=== PATIENT | male | born 1940 | race Caucasian/White ===

== ENCOUNTER 2021-10-27 10:41 | Observation (INO) ==
--- NOTE | 2021-10-16 08:32 | PAT Medication Instructions ---
Medication Instructions Date of Service October 16, 2021 Home Medications Medication Instructions Recorded carvedilol 12.5 mg tablet 12.5 mg PO .COMPLEX #225 tab 06/12/21 amlodipine 5 mg tablet 5 mg PO BID cholecalciferol (vitamin D3) 25 mcg (1,000 unit) capsule 1,000 units PO QAM fluticasone propionate 50 mcg/actuation nasal spray,suspension (Allergy Relief (fluticasone)) 1 spray INTRANASAL PRN lisinopril 10 mg tablet 10 mg PO BID coQ10 (ubiquinol) 100 mg capsule 100 mg PO TID carvedilol 12.5 mg tablet 12.5 mg PO .COMPLEX dutasteride 0.5 mg capsule 0.5 mg PO QAM multivitamin 1 tab PO QAM Continue as directed carvedilol 12.5 mg tablet 12.5 mg PO .COMPLEX (including morning of surgery if you usually take a morning dose) STOP taking 2 weeks before surgery coQ10 (ubiquinol) 100 mg capsule 100 mg PO TID DO NOT take the morning of surgery cholecalciferol (vitamin D3) 25 mcg (1,000 unit) capsule 1,000 units PO QAM lisinopril 10 mg tablet 10 mg PO BID multivitamin 1 tab PO QAM Take morning of surgery With a small sip of water, OTHERWISE NOTHING TO EAT OR DRINK AFTER MIDNIGHT: amlodipine 5 mg tablet 5 mg PO BID fluticasone propionate 50 mcg/actuation nasal spray,suspension (Allergy Relief (fluticasone)) 1 spray INTRANASAL PRN(if needed) dutasteride 0.5 mg capsule 0.5 mg PO QAM Take evening before surgery amlodipine 5 mg tablet 5 mg PO BID fluticasone propionate 50 mcg/actuation nasal spray,suspension (Allergy Relief (fluticasone)) 1 spray INTRANASAL PRN(if needed) lisinopril 10 mg tablet 10 mg PO BID Other Notes If you have any questions please call us at [phone] or [phone] or [phone] or [phone]
--- NOTE | 2021-10-16 12:06 | Anesthesiology Consultation ---
Date of Service October 16, 2021 Assessment & Plan (1) Encounter for pre-operative examination: - Case discussed with Dr. Ash including abnormal EKG and previous cardiac testing. He advised patient is acceptable risk to proceed with surgery and does not need additional evaluation or testing from his standpoint. - cardiology office visit 04/21/2021 [place]: "...Cardiomyopathy...his degree of LV dysfunction has waxed and waned over the years. overall he seems to be feeling well...not sure there is a lot of value and repeat echocardiography given his good functional status. Think continuing him on the current dose of beta blockade and Chris inhibitor is reasonable...does report some symptoms of dizziness in the morning and it is unclear if he would tolerate higher doses. We can watch his blood pressures over time and see if there is room for more aggressive therapy...PVCs (premature ventricular contractions)...frequency of his PVCs appears to wax and wane. However, this has been a very longstanding problem for this patient. He reports 1st being diagnosed with PVCs several decades ago. He seems to have fairly frequent PVCs currently. However, no symptoms. I think we will continue our current therapy..." - anesthesia history: PONV, post-op urinary retention. - COVID screening: Per assessment on 10/16/2021: Travel screen negative, no known COVID-19 positive contacts or current COVID-19 related symptoms in past 2 weeks. Surgeon arranging preop COVID testing, scheduled 10/23/2021. Awaiting results. Chart Review Chart Review: Acceptable Risk for Surgery and Patient seen in Pre Admission Testing Teaching & Discussion Pre-Anesthesia Teaching/Discussion Notes: Instructed NPO after midnight before surgery, except medications with 15 cc of water. Medication instructions provided according to the PAT guidelines. History Surgery Operation Date: 10/27/21 10:50 Proposed Procedures p Left Scrotal Hydrocelectomy - Hollis Fernandez MD Height/Weight Height: 5 ft 9 in Weight: 83.2 kg Allergies Allergy/AdvReac Type Severity Reaction Status Date / Time adhesive tape Allergy Unknown RASH Verified 10/15/21 12:38 amoxicillin Allergy Unknown DIZZINESS, Verified 10/15/21 12:38 NAUSEA levofloxacin Allergy Unknown DIZZINESS, Verified 10/15/21 12:38 NAUSEA naproxen [From Aleve] Allergy Unknown VISION Verified 10/15/21 12:38 ISSUES amiodarone AdvReac Unknown Ocular Verified 10/15/21 12:38 toxicity Medications Home Medications Medication Instructions Recorded Confirmed Last Taken amlodipine 5 mg tablet 5 mg PO BID tab 04/03/19 10/15/21 04/28/20 cholecalciferol (vitamin D3) 25 1,000 units PO QAM cap 12/11/19 10/15/21 04/28/20 mcg (1,000 unit) capsule fluticasone propionate 50 1 spray INTRANASAL PRN g 03/04/20 10/15/21 04/27/20 mcg/actuation nasal spray,suspension (Allergy Relief (fluticasone)) lisinopril 10 mg tablet 10 mg PO BID 04/28/20 10/15/21 04/28/20 coQ10 (ubiquinol) 100 mg capsule 100 mg PO TID 04/21/21 10/15/21 Unknown carvedilol 12.5 mg tablet 12.5 mg PO .COMPLEX #225 tab 06/12/21 10/15/21 Unknown dutasteride 0.5 mg capsule 0.5 mg PO QAM 10/15/21 10/15/21 Unknown multivitamin 1 tab PO QAM 10/15/21 10/15/21 Unknown Additional Notes: Pt states is taking a different form of CoQ10 and was advised to follow same instructions-stopping that supplement 2 weeks before surgery or as soon as possible given surgery within 11 days. He verbalized understanding, denied questions or concerns. Past Medical History Medical History (Updated 10/19/21 @ 08:46 by Guerita Saba PA-C) BPH w urinary obs/LUTS Cardiomyopathy unspecified per cardio records, per 2019 echo: EF 45-50%, Moderately dilated LV with mildly reduced systolic function Hypokinesis of base to mid inferoseptum and inferolateral wall Severe hypokinesis to akinesis of the base to mid inferior wall Dyspnea on effort PT DENIES Hypertension controlled, stable per pt Pulmonary embolism HX -NO ISSUES SINCE PVCs (premature ventricular contractions) F/U DR WEN NGUYỄN Rotator cuff tear arthropathy of right shoulder Tear meniscus knee with Levaquin Patient denies h/o stroke, seizures, heart attack, DM, or blood transfusions. Exercise / Class Metabolic Activity II 4-5 Yardwork/Stairs/Walk up hill (denies CP or SOB with 1 FOS) Past Family History Family History Other No known health problems Past Surgical History Surgical History History of back surgery X 5-INCLUDING FUSION History of cardiac cath [facility] NO STENTS-FEW YRS AGO History of colonoscopy History of esophagogastroduodenoscopy (EGD) History of herniorrhaphy X 3 Hx of shoulder surgery LEFT Nausea and vomiting after administration of anesthetic agent Past Anesthesia History No Family Hx of Anesthesia Complications and Other (h/o post-op urinary retention) History of PONV No Hx of Motion Sickness and History of PONV Social History Smoking Status: Never smoker Do You Dip or Chew Tobacco: No Hx Alcohol Use: Yes Alcohol type: beer alcohol intake frequency: holidays/special occasions only Hx Substance Use: No Review of Systems Chronic palpitations with PVCs, denies associated dizziness or lightheadedness. H/o snoring, denies witnessed apneas. Infrequent reflux, resolves with TUMS. Patient denies chest pain, shortness of breath, dyspnea on exertion, fever, chills, cough, or wheezing. Physical Exam Vital Signs Vitals BP 146/72 P 51 TEMP 98.2 SP02 99% on RA RESP 17 Physical Full cervical extension range of motion without pain TMD 3.5 finger breaths Mallampati Score 2 Dentition: intact, missing right lower front, bridge right lower back, multiple caps/crowns-none in front per pt; denies chipped or loose teeth, Lungs: normal respiratory effort. Clear throughout to auscultation, no adventitious breath sounds Cardiac: regular rate and rhythm, no murmurs noted Carotid arteries: negative bruit bilat Lab Results Anesthesia Preop Results Results Anesthesia Widget: WBC 7.64 K/uL (4.8-10.8) 10/16/21 Hgb 12.5 g/dL (14.0-18.0) L 10/16/21 Hct 38.5 % (42-52) L 10/16/21 Plt 219 K/uL (130-400) 10/16/21 Na 140 mmol/L (136-145) 10/16/21 K 4.4 mmol/L (3.5-5.1) 10/16/21 Cl 110 mmol/L (98-107) H 10/16/21 CO2 26 mmol/L (21-32) 10/16/21 BUN 23 mg/dl (6-23) 10/16/21 Creat 1.07 mg/dl (0.6-1.4) 10/16/21 Glucose Level 75 mg/dl (70-99(Fasting)) 10/16/21 Urine Color Dark Yellow 10/16/21 Urine Appearance Clear (Clear) 10/16/21 Urine pH 5.0 (4.5-7.5) 10/16/21 Urine Specific [place] 1.021 (1.000-1.030) 10/16/21 Urine Protein Trace (Negative) H 10/16/21 Urine Glucose (UA) Negative (Negative) 10/16/21 Urine Ketones Trace (Negative) H 10/16/21 Urine Blood Negative (Negative) 10/16/21 Urine Nitrite Negative (Negative) 10/16/21 Urine Bilirubin Negative (Negative) 10/16/21 Urine Urobilinogen Negative (Negative) 10/16/21 Urine Leukocyte Esterase Negative (Negative) 10/16/21 Urine WBC (Auto) 1-5 /hpf (0-5) 10/16/21 Urine RBC (Auto) 0-4 /hpf (0-4) 10/16/21 Urine Hyaline Casts (Auto) 1-5 /lpf (0-5) 10/16/21 Urine Epithelial Cells (Auto) 5-10 /lpf (0-5) H 10/16/21 Urine Bacteria (Auto) Negative (Negative) 10/16/21 Testing Electrocardiogram Date: 10/16/21 Sinus bradycardia with 1st degree AV block, rate 47 bpm Septal infarct, age undetermined When compared with ECG of 04/28/2020, septal infarct is now present Chest X-Ray Date: 10/16/21 The cardiac silhouette is mildly enlarged. Mild linear subsegmental atelectasis/scarring of the lung bases. There is no pneumothorax, pleural effusion, airspace consolidation or overt pulmonary edema. The lungs are mildly hyperinflated. Degenerative changes of the shoulders and spine. IMPRESSION: No acute process. Echocardiogram Date: 01/25/20 EF 45-50% Moderately dilated LV with mildly reduced systolic function Hypokinesis of base to mid inferoseptum and inferolateral wall Severe hypokinesis to akinesis of the base to mid inferior wall No LVH Mild mitral regurgitation Grade I diastolic dysfunction Stress Test Date: 12/05/19 Exercise METS 4 MPHR 97% Nondiagnostic for exercise induced ischemia Multiple PVCs and in recovery ventricular bigeminy
[~2021-10-27 10:41] MED LIST: LIDOCAINE 2% 2 ML VIAL/AMP(20MG/ML) INFIL ONE; LR 15ML/HR IV SCH; ONDANSETRON INJ 2 MG/ML 2 ML VIAL ONE; PROPOFOL IV EMULSION 10 MG/ML 20 ML VIAL IV ONE; ceFAZolin 2000MG 2,000 MG/15 ML SYR IV SCH; fentaNYL citrate 100 MCG/2 ML VIAL ONE
[2021-10-27] MEDS ORDERED: ONDANSETRON INJ 2 MG/ML 2 ML VIAL IV PRN (11:31)
[2021-10-27] MEDS ORDERED: PROMETHAZINE HCL 6.25 MG in SODIUM CHLORIDE 0.9% 50 ML IV PRN (11:31)
[2021-10-27] MEDS ORDERED: ePHEDrine sulfate 50 MG/ML AMP IV PRN (11:31)
[2021-10-27] MEDS ORDERED: ATROPINE SULFATE 0.1 MG/ML 10ML SYR IV PRN (11:31)
[2021-10-27] MEDS ORDERED: fentaNYL citrate 100 MCG/2 ML VIAL IV PRN (11:31)
[2021-10-27] MEDS ORDERED: BUPIVACAINE 0.5 % 5 MG/1 ML MPF 30ML VIAL ONE (11:42)
[2021-10-27] MEDS ORDERED: BACITRACIN OINT 15 GM TUBE ONE (11:42)
--- NOTE | 2021-10-27 12:34 | History & Physical Report ---
Date of Service October 27, 2021 Assessment & Plan (1) Left hydrocele: (2) Benign localized prostatic hyperplasia with lower urinary tract symptoms (LUTS): Plan: Discussed the planned procedure of left hydrocelectomy as well as TURP He would like to proceed with both options today and we will plan for 23-hour observation stay after surgery Risks, benefits, expectations reviewed and consents were signed. History of Present Illness Primary Care Provider: Luz Maria Parisi MD Notable left hydrocele as well as voiding dysfunction and substantial obstruction from his residual prostate tissue Presenting today for definitive treatment We will plan for both left hydrocelectomy and TURP Allergies Allergy/AdvReac Type Severity Reaction Status Date / Time naproxen [From Aleve] Allergy Intermediate VISION Verified 10/27/21 11:03 ISSUES adhesive tape Allergy Mild RASH Verified 10/27/21 11:03 amoxicillin Allergy Mild DIZZINESS, Verified 10/27/21 11:03 NAUSEA levofloxacin Allergy Mild DIZZINESS, Verified 10/27/21 11:03 NAUSEA amiodarone AdvReac Intermediate Ocular Verified 10/27/21 11:03 toxicity Home Medications Medication Instructions Recorded Confirmed Type amlodipine 5 mg tablet 5 mg PO BID tab 04/03/19 10/27/21 History cholecalciferol (vitamin D3) 25 1,000 units PO QAM cap 12/11/19 10/27/21 History mcg (1,000 unit) capsule fluticasone propionate 50 1 spray INTRANASAL PRN g 03/04/20 10/27/21 History mcg/actuation nasal spray,suspension (Allergy Relief (fluticasone)) lisinopril 10 mg tablet 10 mg PO BID 04/28/20 10/27/21 History coQ10 (ubiquinol) 100 mg capsule 100 mg PO TID 04/21/21 10/27/21 History carvedilol 12.5 mg tablet 12.5 mg PO .COMPLEX #225 tab 06/12/21 10/27/21 Rx dutasteride 0.5 mg capsule 0.5 mg PO QAM 10/15/21 10/27/21 History (Avodart) multivitamin 1 tab PO QAM 10/15/21 10/27/21 History Past Med/Surg History Medical History BPH w urinary obs/LUTS Cardiomyopathy unspecified per cardio records, per 2020 echo: EF 45-50%, Moderately dilated LV with mildly reduced systolic function Hypokinesis of base to mid inferoseptum and inferolateral wall Severe hypokinesis to akinesis of the base to mid inferior wall Dyspnea on effort PT DENIES Hypertension controlled, stable per pt Pulmonary embolism HX 1972/1975-NO ISSUES SINCE PVCs (premature ventricular contractions) F/U DR WEN NGUYỄN Rotator cuff tear arthropathy of right shoulder Tear meniscus knee with Levaquin Surgical History History of back surgery X 5-INCLUDING FUSION History of cardiac cath [facility] NO STENTS-FEW YRS AGO History of colonoscopy History of esophagogastroduodenoscopy (EGD) History of herniorrhaphy X 3 Hx of shoulder surgery LEFT Nausea and vomiting after administration of anesthetic agent Family History Other No known health problems Social History (Updated 10/15/21 @ 12:58 by Rachell Orona RN) Smoking Status: Never smoker Second Hand Exposure: No; Do You Dip or Chew Tobacco: No; Hx Alcohol Use: Yes Alcohol type: beer Hx Substance Use: No Preferred Language: [place]ian Communication Ability: Effective Sheriff'S Detective Required: No Beliefs That Will Affect Care: None Current Living Situation: Alone current occupational status: retired Other Information That Helps Us Care for You: No Feels Safe at Home: Yes Safety Concerns: Feels Safe At This Time Assistive Devices: Glasses Physical Exam Physical Exam: Left hydrocele Constitutional: well developed and well nourished Neck: neck nontender Respiratory: normal respiratory effort; no respiratory distress and does not use accessory muscles Cardiovascular: Rate/Rhythm: regular rate Vessels: radial pulses present Extremities: no edema Gastrointestinal (Abdomen): Inspection/Auscultation: abdomen normal to inspection Percussion/Palpation: abdomen soft; abdomen nontender and no guarding Musculoskeletal: Head/Neck/Chest: normocephalic and head atraumatic Extremities: extremities normal to inspection Skin: no rashes and no lesions Trauma: no evidence of skin trauma Neurologic: awake; not obtunded Speech / Cognition: normal speech Motor/Sensory: no tremor Psychiatric: Orientation: alert and oriented x 3 Genitourinary: no CVA tenderness Lymphatic: no lymphadenopathy Results & Data ([facility]) Vital Signs (Past 12 Hours) Vital Signs Temp Pulse Resp BP Pulse Ox 10/27/21 11:11 36.7 C 51 L 18 149/74 H 99
[2021-10-27] MEDS ORDERED: DEXAMETHASONE SOD INJ 4 MG/ML VIAL ONE (13:05)
[2021-10-27] MEDS ORDERED: CISATRACURIUM BESYLATE IV SOLN 2 MG/ML 10 ML VIAL IV ONE (13:05)
[2021-10-27] MEDS ORDERED: fentaNYL citrate 100 MCG/2 ML VIAL ONE (14:29)
[2021-10-27] MEDS ORDERED: ONDANSETRON INJ 2 MG/ML 2 ML VIAL ONE (14:34)
--- NOTE | 2021-10-27 14:52 | Anesthesiology Progress Note ---
Date of Service October 27, 2021 Anesthesia Post Procedure Vital Signs Vital Signs: Temp Pulse Resp BP Pulse Ox 10/27/21 11:11 36.7 C 51 L 18 149/74 H 99 Transfer of Care Handoff Completed per policy Notes Mental Status: alert / awake / arousable and participated in evaluation Patient Amnestic to Procedure: Yes Nausea / Vomiting: adequately controlled Pain: adequately controlled Airway Patency, RR, SpO2: stable & adequate BP & HR: stable & adequate Hydration State: stable & adequate Anesthetic Complications: no major complications apparent and Pt Satisfied with anesthetic care
--- NOTE | 2021-10-27 15:04 | Operative Report ---
PG Post Operative Report Pre & Post Diagnosis Operation Date: 10/27/21 12:05 Pre-Op Diagnosis: Hydrocele Left Benign localized prostatic hyperplasia with lower urinary tract symptoms Post-Op Diagnosis: Hydrocele Left Benign localized prostatic hyperplasia with lower urinary tract symptoms I identified the patient and participated in the time-out.: Yes Procedure Operation Date: 10/27/21 12:05 Actual Procedures p Left Scrotal Hydrocelectomy(Left) - Hollis Fernandez MD s Transurethral Resection Prostate(Not Applicable) - Hollis Fernandez MD Surgeon Kenny Fernandez MD [employer] Supervisor Digna Hudson Estimated Blood Loss 10 Findings Consistent with Post-Op Diagnosis Specimens 1. Hydrocele sac Description of Procedure Patient was identified in the preoperative holding area and appropriate informed consents reviewed and completed and he was transported to the operating suite. We plan to do staged procedures with a hydrocele repair first followed by the TURP To prepare for the hydrocele he was placed in supine position and received general anesthesia. Following sterile prep and drape an incision was made in the left lateral aspect of the scrotum in a transverse fashion. We dissected through dartos fascia and skeletonized the tunica vaginalis before delivering through the incision. We completed skeletonization of the tunica vaginalis that time before incising and draining 250 cc plus of straw-colored fluid. We excised the redundant hydrocele sac and oversewed the cut edges. Specimen was passed off the table. We obtained meticulous hemostasis from the inner aspect of the scrotum before returning the testis to its [place] life. Dartos fascia was reapproximated with a 2-0 Vicryl followed by closure of the skin with 3-0 chromic sutures in vertical mattress fashion. Half percent Marcaine was utilized to infiltrate the skin as well as the cord before concluding the case. Digna Hudson assisted throughout this entire portion of the case. We then positioned him in dorsal lithotomy and reprepped for the TURP. During the case I passed a 2 6 Nepali cystoscope/resectoscope with 30 degree lens and visual obturator. Inspection revealed a healthy-appearing urethra. He has substantial lateral lobe obstruction from his prostate. His bladder is healthy in appearance. Following my inspection of the bladder and prostate I exchanged the visual obturator for a button electrode and resecting element. I began to treat his left lateral lobe first as this was the larger of the 2 lobes. I gradually work from anterior to posterior until this entire lobe was resected. Hemostasis was excellent on that side of the prostate I turned my attention to the right side of the prostate. Gradually work my way through this tissue as well before concluding my resection. I obtained meticulous hemostasis. The prostatic urethra was widely patent. I placed a new [place] [id number] Frenchwithout difficulty. He was reversed of anesthesia and taken to the recovery room in stable condition. There were no complications. I attest to the content of the Intraoperative Record and any orders documented therein. Any exceptions are noted below.
[2021-10-27] MEDS ORDERED: HYDROCODONE/ACETAMOPHEN 5/325MG TAB PO PRN (16:33)
[2021-10-27] MEDS ORDERED: ACETAMINOPHEN 325 MG TAB PO PRN (16:33)
[2021-10-27] MEDS ORDERED: carvediloL 12.5 MG TAB PO SCH (17:00)
[2021-10-27] MEDS: carvediloL 25 MG TAB PO SCH (18:08)
[2021-10-27] MEDS: LACTATED RINGER'S 1,000 ML IV SCH (18:10)
[2021-10-27] MEDS: FLUTICASONE PROPIONATE NA SPR 16 GM BTL SCH (18:10)
[2021-10-27] MEDS ORDERED: NURSING DECISION MEDICATION PRN (19:59)
[2021-10-27] MEDS ORDERED: COUGH DROP (SUGAR FREE) LOZ 24 LOZ/1 BOX BUCCAL PRN (20:12)
[2021-10-27] MEDS: lisinopril 10 MG TAB PO SCH (20:35)
[2021-10-27] MEDS: amLODIPine BESYLATE 5 MG TAB PO SCH (20:35)
[2021-10-27] MEDS ORDERED: NON-FORMULARY MEDICATION (Coq10 (Ubiquinol) 100 mg capsule) PO SCH (21:00)
[2021-10-28] MEDS: amLODIPine BESYLATE 5 MG TAB PO SCH (08:29)
[2021-10-28] MEDS ORDERED: CHOLECALCIFEROL 1,000 UNITS 25 MCG TAB PO SCH (09:00)
[2021-10-28] MEDS ORDERED: carvediloL 12.5 MG TAB PO SCH (09:00)
[2021-10-28] MEDS ORDERED: carvediloL 6.25 MG TAB PO SCH (09:00)
[2021-10-28] MEDS: lisinopril 10 MG TAB PO SCH (12:01)
--- NOTE | 2021-10-28 13:18 | Urology Progress Note ---
Date of Service October 28, 2021 Assessment & Plan (1) Left hydrocele: (2) Benign localized prostatic hyperplasia with lower urinary tract symptoms (LUTS): Plan: Postop day 1 status post left hydrocelectomy and TURP Recovering appropriately Voiding trial this morning Likely discharge home after he voids later today Admission and Anticipated Discharge Date Admission Date: October 27, 2021 Subjective No major issues overnight No pain Very comfortable Urine clear Needed some manual irrigation x1 shortly after arriving on the floor but has had no drainage issues since then Physical Exam Physical Exam: Urine relatively clear, scrotal incision appropriate, no significant drainage, no significant swelling, no erythema Results & Data ([facility]) Vital Signs (Past 12 Hours) Vital Signs Temp Pulse Resp BP BP Pulse Ox 10/28/21 11:00 36.5 C 56 L 18 114/45 L 94 10/28/21 07:00 36.7 C 55 L 16 100/40 L 94 10/28/21 03:54 36.8 C 57 L 18 99/59 L 94 PG Care Time/CCT Total # of Minutes Spent Total Time Spent with Patient: Total time spent is greater than 50% in coordination of care (as documented) at patient's floor/unit and/or counseling patient: Coding Level of Care Code 38703 Subseq Hosp Care Lvl 2 Diagnoses Left hydrocele N43.3 Benign localized prostatic hyperplasia with lower urinary tract symptoms (LUTS) N40.1
[2021-10-28] MEDS: LACTATED RINGER'S 1,000 ML IV SCH (13:21)
[2021-10-28] MEDS ORDERED: CALCIUM CARBONATE 500 MG CHEWABLE TAB PO ONE (15:47)
[2021-10-28] MEDS ORDERED: SIMETHICONE 80 MG CHEW PO ONE (15:56)
[2021-10-28] MEDS: FLUTICASONE PROPIONATE NA SPR 16 GM BTL SCH (17:09)
[2021-10-28] MEDS: carvediloL 25 MG TAB PO SCH (18:41)
--- NOTE | 2021-10-29 15:30 | Discharge Summary ---
Date of Service October 29, 2021 Admission HPI Per Admitting Provider Notable left hydrocele as well as voiding dysfunction and substantial obstruction from his residual prostate tissue. Presented for definitive treatment with plans for both left hydrocelectomy and TURP. Admission Exam Per Admitting Provider Left Hydrocele Constitutional: well developed and well nourished Neck: neck nontender Respiratory: normal respiratory effort; no respiratory distress and does not use accessory muscles Cardiovascular: Rate/Rhythm: regular rate Vessels: radial pulses present Extremities: no edema Gastrointestinal (Abdomen): Inspection/Auscultation: abdomen normal to inspection Percussion/Palpation: abdomen soft; abdomen nontender and no guarding Musculoskeletal: Head/Neck/Chest: normocephalic and head atraumatic Extremities: extremities normal to inspection Skin: no rashes and no lesions Trauma: no evidence of skin trauma Neurologic: awake; not obtunded Speech / Cognition: normal speech Motor/Sensory: no tremor Psychiatric: Orientation: alert and oriented x 3 Genitourinary: no CVA tenderness Lymphatic: no lymphadenopathy Principal Diagnosis Hydrocele Left; Benign localized prostatic hyperplasia with lower urinary tract symptoms Discharge Exam Physical Exam: Urine relatively clear, scrotal incision appropriate, no significant drainage, no significant swelling, no erythema Discharge Data Allergies Allergy/AdvReac Type Severity Reaction Status Date / Time naproxen [From Aleve] Allergy Intermediate VISION Verified 10/27/21 11:03 ISSUES adhesive tape Allergy Mild RASH Verified 10/27/21 11:03 amoxicillin Allergy Mild DIZZINESS, Verified 10/27/21 11:03 NAUSEA levofloxacin Allergy Mild DIZZINESS, Verified 10/27/21 11:03 NAUSEA amiodarone AdvReac Intermediate Ocular Verified 10/27/21 11:03 toxicity Procedures Performed Operation Date: 10/27/21 12:05 Actual Procedures p Left Scrotal Hydrocelectomy(Left) - Kenny Fernandez MD s Transurethral Resection Prostate(Not Applicable) - Kenny Fernandez MD Hospital Course (1) Left hydrocele: (2) Benign localized prostatic hyperplasia with lower urinary tract symptoms (LUTS): 81yo M admitted s/p left hydrocelectomy and TURP - Pt tolerated procedure well. - No acute issues postoperatively. - Progressed appropriately overnight. - Passed a voiding trial on POD #1. - Pt discharged home in stable condition. Total Time Total Time Spent Total Time Spent (In Minutes): 15 Discharge Plan Discharge Items Patient Disposition: Home - Self-Care Reason For Visit: Hydrocele BPH Discharge Diagnosis: Hydrocele, BPH Activity: Per Instructions section Lifting: No more than 25 pounds Bathing Comment: OK to shower tomorrow. No tub baths or soaks. Sexual Activity: Wait until after follow-up appointment Exercise/Sports: Wait until after follow-up appointment Driving/Machine Use: Do not drive if taking prescription pain medication. Non-emergency contact: Surgeon and Urologist Call non-emergency contact if: you have any medication questions, your pain is not controlled, your pain is worsening, you have a fever, your wound has increased redness, your wound has increased drainage and your wound pain has increased Follow-up/Referrals: Kenny Fernandez MD [Physician] - (office will contact you to schedule follow up appointment.) Luz Maria Parisi MD [Primary Care Provider] - (office will call you tomorrow, 10/29, to set up appointment.) Diet: Regular Addtl Attending Provider Instructions: Please take all medications as prescribed and keep all follow-ups as scheduled. Please call our office at [phone] with any questions, concerns or need to reschedule appointments for any reason. We are happy to assist you. The Urology office will contact you to schedule your follow-up appointment. Recovering at home: Apply an ice pack or cold compress to the scrotum as directed to help reduce swelling. Do this for no longer than 15 minutes at a time. Continue using the cold pack for 2 days or until swelling improves. Take prescribed pain medicine as directed. Avoid swimming, bathing, using a hot tub, and other activities that cause the incision to be covered with water. Wear a jockstrap or snug underwear as directed. Don't lift anything heavy. Don't have sex for [address] you are no longer taking pain medicine. Avoid constipation. Please use a stool softener (Colace) for the first two weeks after your procedure. Dont be alarmed by brownish or reddish blood or clots in your urine. This is a result of the procedure. This may occur off and on for weeks to months after the procedure but should continue to improve. Drink plenty of fluids during the day (enough to keep your urine very light colored). This will help keep a healthy flow of urine. When to call [facility] at [phone]: Fever of 101F or higher, chills, nausea, or vomiting Your urine contains heavy blood clots Pain that is not controlled with medicine Uncontrolled vomiting Problems urinating or inability to urinate Pending Studies at Discharge: No Stand-Alone Forms: My [facility] BigML, Smoking Cessation Medications and DC Order Prescriptions: New oxycodone-acetaminophen [Percocet] 5-325 mg tablet 1 tab PO Q8H PRN (Reason: pain) Qty: 7 RF: 0 docusate sodium [Colace] 100 mg capsule 100 mg PO BID Qty: 30 RF: 0 Continued carvedilol 12.5 mg tablet 12.5 mg PO .COMPLEX Qty: 225 RF: 3 cholecalciferol (vitamin D3) 25 mcg (1,000 unit) capsule 1,000 units PO QAM RF: 0 coQ10 (ubiquinol) 100 mg capsule 100 mg PO TID RF: 0 amlodipine 5 mg tablet 5 mg PO BID RF: 0 lisinopril 10 mg tablet 10 mg PO BID RF: 0 fluticasone propionate [Allergy Relief (fluticasone)] 50 mcg/actuation spray,suspension 1 spray intranasal PRN RF: 0 multivitamin Tablet 1 tab PO QAM RF: 0 Discontinued dutasteride [Avodart] 0.5 mg capsule 0.5 mg PO QAM RF: 0 Discharge Orders: Discharge Order (Routine); Ordered 10/28/21 Ordered By: Digna Mack/Other Patient Handouts: Hydrocele Surgery (Hydrocelectomy) Admission Data Admit Date/Time: 10/27/21 14:53 Attending Provider: Kenny Fernandez Admit Provider: Kenny Fernandez Primary Care Provider: Luz Maria Parisi Other Interventions: Discharge Summary Assessment (RN) Last Done: 10/28/21 19:13 Coding Level of Care Code D/C DAY MANAGEMENT <30 MINS Diagnoses Left hydrocele N43.3 Benign localized prostatic hyperplasia with lower urinary tract symptoms (LUTS) N40.1
== END 2021-10-28 19:45 | disposition home or self-care (01) ==
LOC: 3W 10:41 → ASU 10:41

== ENCOUNTER 2021-11-15 11:37 | Observation (INO) ==
--- NOTE | 2021-11-15 12:08 | Emergency Department Note ---
History of Present Illness General Chief complaint: Testicular Pain Stated complaint: TESTICULAR PAIN,SWELLING,S/P SURG Time Seen by Provider: 11/15/21 11:47 Source: patient Mode of arrival: ambulatory Limitations: no limitations History of Present Illness Maximum Pain Intensity: 7 This patient is a 81-year-old male who comes in with left testicular swelling. Dr. Fernandez did do a hydrocele operation on him about 3 weeks ago he has had some increasing swelling since then but is gotten significantly worse over the last couple days. He called urology and they ordered a urine for Tuesday which the patient had this done. Tuesday he was having increasing pain and swelling went to the [place] [facility] he had an ultrasound there which he tells me showed a large amount of blood he said they talk to urology here and will go to transfer him here for drainage but decided not to he says. He had a low-grade temperat ure of 99 6 has had increasing pain and swelling. No redness or warmth. He is has no dysuria or hematuria. He is been able to empty his urine and bladder. No trauma or injury no back pain no numbness weakness of his legs no chest pain or shortness of breath. Home Medications Medication Instructions Recorded Confirmed Type amlodipine 5 mg tablet 5 mg PO BID tab 04/03/19 11/15/21 History cholecalciferol (vitamin D3) 25 1,000 units PO QAM cap 12/11/19 11/15/21 History mcg (1,000 unit) capsule fluticasone propionate 50 1 spray INTRANASAL PRN g 03/04/20 11/15/21 History mcg/actuation nasal spray,suspension (Allergy Relief (fluticasone)) lisinopril 10 mg tablet 10 mg PO BID 04/28/20 11/15/21 History coQ10 (ubiquinol) 100 mg capsule 100 mg PO TID 04/21/21 11/15/21 History carvedilol 12.5 mg tablet 12.5 mg PO .COMPLEX #225 tab 06/12/21 11/15/21 Rx multivitamin 1 tab PO QAM 10/15/21 11/15/21 History doxycycline hyclate 100 mg tablet 100 mg PO BID 10 Days #20 tab 11/13/21 11/15/21 Rx Allergies Allergy/AdvReac Type Severity Reaction Status Date / Time naproxen [From Aleve] Allergy Intermediate VISION Verified 11/06/21 11:44 ISSUES adhesive tape Allergy Mild RASH Verified 11/06/21 11:44 amoxicillin Allergy Mild DIZZINESS, Verified 11/06/21 11:44 NAUSEA levofloxacin Allergy Mild DIZZINESS, Verified 11/06/21 11:44 NAUSEA acetaminophen [From Percocet] AdvReac Severe Dizziness Unverified 11/15/21 12:32 oxycodone [From Percocet] AdvReac Severe Dizziness Unverified 11/15/21 12:32 amiodarone AdvReac Intermediate Ocular Verified 11/06/21 11:44 toxicity Past Med/Surg History Medical History Anemia BPH w urinary obs/LUTS Cardiomyopathy unspecified per cardio records, per 2019 echo: EF 45-50%, Moderately dilated LV with mildly reduced systolic function Hypokinesis of base to mid inferoseptum and inferolateral wall Severe hypokinesis to akinesis of the base to mid inferior wall Dyspnea on effort PT DENIES Hypertension controlled, stable per pt Pulmonary embolism HX 1972/1975-NO ISSUES SINCE PVCs (premature ventricular contractions) F/U DR WEN NGUYỄN Rotator cuff tear arthropathy of right shoulder Tear meniscus knee with Levaquin Surgical History History of back surgery X 5-INCLUDING FUSION History of cardiac cath [facility]-FEW YRS AGO History of colonoscopy History of esophagogastroduodenoscopy (EGD) History of herniorrhaphy X 3 Hx of shoulder surgery LEFT Nausea and vomiting after administration of anesthetic agent Family History Other No known health problems Social History Smoking Status: Never smoker Second Hand Exposure: No; Hx Alcohol Use: Yes Alcohol type: beer Hx Substance Use: No Preferred Language: French Communication Ability: Effective Facilities Plant Engineer Required: No Beliefs That Will Affect Care: None marital status: / Current Living Situation: Alone current occupational status: retired How many Children do You have: 1 Feels Safe at Home: Yes Assistive Devices: None Review of Systems A total of 10 systems reviewed and were otherwise negative Physical Exam Vital Signs Vital Signs - 24 hr 11/15/21 11:40 11/15/21 12:15 11/15/21 12:31 Temperature 36.4 C L Temperature Source Temporal Artery Scan Pulse Rate 60 60 Pulse Rate [Apical] 53 L Pulse Rhythm Regular Regular Pulse Strength Normal Respiratory Rate 18 18 16 Respiratory Effort / Characteristics Non-Labored Spontaneous Respiratory Depth Normal Normal Blood Pressure 126/65 Blood Pressure [Right Arm] 122/59 L Blood Pressure Mean 85 Blood Pressure Mean [Right Arm] 80 Blood Pressure Position Sitting Blood Pressure Position [Right Arm] Lying Pulse Oximetry 94 94 92 Oxygen Delivery Method Room Air Room Air Room Air Sepsis Recent Fever Within 48 Hours No Sepsis New/Unexplained Change in Mental Status N/A Sepsis Action Taken by Nursing No Action Required 11/15/21 14:00 Temperature Temperature Source Pulse Rate Pulse Rate [Apical] 64 Pulse Rhythm Pulse Strength Respiratory Rate 18 Respiratory Effort / Characteristics Non-Labored Spontaneous Respiratory Depth Normal Blood Pressure Blood Pressure [Right Arm] 130/67 Blood Pressure Mean Blood Pressure Mean [Right Arm] 88 Blood Pressure Position Blood Pressure Position [Right Arm] Pulse Oximetry 93 Oxygen Delivery Method Room Air Sepsis Recent Fever Within 48 Hours Sepsis New/Unexplained Change in Mental Status Sepsis Action Taken by Nursing General: Well developed well nourished older male who is complaining of nausea but in no acute distress, breathing comfortably on room air. Normal speech HEENT: Normal cephalic atraumatic. Pupils are equal round and reactive to light. Extraocular movements are intact. Oropharynx is pink with moist mucous membranes. No swelling of the mouth lips or tongue. Neck: Supple with a midline trachea. No meningeal signs or stiffness, no JVD or bruits. No Stridor. Chest: Clear to auscultation bilaterally. No wheezes or rhonchi. No increased work of breathing. Heart: Regular rate and rhythm without murmurs or gallops. Abdomen: Soft nontender, nondistended without rebound guarding or rigidity. : He has significant swelling of his left scrotum/testicle. It is tender is not red the incisions are intact there is no drainage. There is no skin breakdown or necrosis. The right testicle is normal. Extremities: No cyanosis clubbing or edema. No calf tenderness or assymetry Spine/Back. Non tender to palpation. No CVA tenderness Skin: Good turgor without rashes. Neurologic exam: Cranial nerves two through 12 are intact. Motor and sensation are intact and symmetrical throughout. Course Administered Medications Sodium Chloride (Nss) 500 mls @ 125 mls/hr IV .Q4H QUINCY Stop: 12/15/21 14:44 Last Admin: 11/15/21 14:42 Dose: 125 mls/hr Documented by: [id number] Discontinued Medications Ondansetron HCl (Ondansetron Inj 2 Mg/Ml 2 Ml Vial) 4 mg IV NOW STA Stop: 11/15/21 12:14 Last Admin: 11/15/21 12:19 Dose: 4 mg Documented by: [id number] Medical Decision Making Differential Diagnosis Postop hematoma, infection, Bud's gangrene, testicular torsion, hernia, postop complication Medical Records Attestation: I reviewed the patient's medical records. Home Medications Current Medication List: was personally reviewed by me Laboratory Data Attestation: I reviewed the patient's lab results. Result diagrams: 11/15/21 12:15 11/15/21 12:15 Lab Results 11/15/21 11/15/21 11/15/21 Range/Units 12:15 12:15 12:15 WBC 9.23 (4.8-10.8) K/uL RBC 3.68 L (4.7-6.1) M/uL Hgb 11.6 L (14.0-18.0) g/dL Hct 34.7 L (42-52) % MCV 94.3 (80-100) fL MCH 31.5 (25-34) pg MCHC 33.4 (32-36) g/dL RDW Std Deviation 47.7 H (36.4-46.3) fL RDW Coeff of Klaus 13.8 (11.5-14.5) % Plt Count 201 (130-400) K/uL MPV 11.1 H (7.4-10.4) fL Immature Gran % (Auto) 0.2 % Neut % (Auto) 78.2 % Lymph % (Auto) 7.4 % [place] % (Auto) 13.0 % Eos % (Auto) 1.0 % Baso % (Auto) 0.2 % Neut # (Auto) 7.22 H (1.4-6.5) K/uL Lymph # (Auto) 0.68 L (1.2-3.4) K/uL [place] # (Auto) 1.20 H (0.11-0.59) K/uL Eos # (Auto) 0.09 (0-0.5) K/uL Baso # (Auto) 0.02 (0-0.2) K/uL Immature Gran # (Auto) 0.02 (0.00-0.02) K/uL PT 11.0 (9.0-12.0) Seconds INR 1.0 (0.9-1.1) APTT 27.6 (21.0-31.0) Seconds PTT Ratio 1.0 Sodium 135 L (136-145) mmol/L Potassium 4.3 (3.5-5.1) mmol/L Chloride 108 H (98-107) mmol/L Carbon Dioxide 21 (21-32) mmol/L Anion Gap 6 (3-11) BUN 24 H (6-23) mg/dl Creatinine 1.14 (0.6-1.4) mg/dl Est Cr Clr Drug Dosing Not Reportable Est GFR ( Amer) 68.5 ml/min Est GFR (Non-Af Amer) 59.1 ml/min BUN/Creatinine Ratio 21.1 H (10-20) Glucose 104 H (70-99(Fasting)) mg/dl Calcium 8.3 L (8.5-10.1) mg/dl Total Bilirubin 0.8 (0.2-1.0) mg/dl AST 11 L (13-39) U/L ALT 9 (7-52) U/L Alkaline Phosphatase 63 (34-104) U/L Total Protein 5.7 L (6.0-8.3) gm/dl Albumin 3.2 L (3.4-5.0) gm/dl Globulin 2.5 (2.5-4.0) gm/dl Albumin/Globulin Ratio 1.3 (0.9-2) Urine Color Urine Appearance (Clear) Urine pH (4.5-7.5) Ur Specific [place] (1.000-1.030) Urine Protein (Negative) Urine Glucose (UA) (Negative) Urine Ketones (Negative) Urine Blood (Negative) Urine Nitrite (Negative) Urine Bilirubin (Negative) Urine Urobilinogen (Negative) Ur Leukocyte Esterase (Negative) Urine WBC (Auto) (0-5) /hpf Urine RBC (Auto) (0-4) /hpf U Hyaline Cast (Auto) (0-5) /lpf U Epithel Cells (Auto) (0-5) /lpf Urine Bacteria (Auto) (Negative) SARS-CoV-2, RNA, NAAT (NEGATIVE) 11/15/21 11/15/21 Range/Units 14:48 15:07 WBC (4.8-10.8) K/uL RBC (4.7-6.1) M/uL Hgb (14.0-18.0) g/dL Hct (42-52) % MCV (80-100) fL MCH (25-34) pg MCHC (32-36) g/dL RDW Std Deviation (36.4-46.3) fL RDW Coeff of Klaus (11.5-14.5) % Plt Count (130-400) K/uL MPV (7.4-10.4) fL Immature Gran % (Auto) % Neut % (Auto) % Lymph % (Auto) % [place] % (Auto) % Eos % (Auto) % Baso % (Auto) % Neut # (Auto) (1.4-6.5) K/uL Lymph # (Auto) (1.2-3.4) K/uL [place] # (Auto) (0.11-0.59) K/uL Eos # (Auto) (0-0.5) K/uL Baso # (Auto) (0-0.2) K/uL Immature Gran # (Auto) (0.00-0.02) K/uL PT (9.0-12.0) Seconds INR (0.9-1.1) APTT (21.0-31.0) Seconds PTT Ratio Sodium (136-145) mmol/L Potassium (3.5-5.1) mmol/L Chloride (98-107) mmol/L Carbon Dioxide (21-32) mmol/L Anion Gap (3-11) BUN (6-23) mg/dl Creatinine (0.6-1.4) mg/dl Est Cr Clr Drug Dosing Est GFR ( Amer) ml/min Est GFR (Non-Af Amer) ml/min BUN/Creatinine Ratio (10-20) Glucose (70-99(Fasting)) mg/dl Calcium (8.5-10.1) mg/dl Total Bilirubin (0.2-1.0) mg/dl AST (13-39) U/L ALT (7-52) U/L Alkaline Phosphatase (34-104) U/L Total Protein (6.0-8.3) gm/dl Albumin (3.4-5.0) gm/dl Globulin (2.5-4.0) gm/dl Albumin/Globulin Ratio (0.9-2) Urine Color Yellow Urine Appearance Clear (Clear) Urine pH 5.0 (4.5-7.5) Ur Specific [place] 1.006 (1.000-1.030) Urine Protein Negative (Negative) Urine Glucose (UA) Negative (Negative) Urine Ketones Trace H (Negative) Urine Blood 3+ H (Negative) Urine Nitrite Negative (Negative) Urine Bilirubin Negative (Negative) Urine Urobilinogen Negative (Negative) Ur Leukocyte Esterase 1+ H (Negative) Urine WBC (Auto) 5-10 H (0-5) /hpf Urine RBC (Auto) 0-4 (0-4) /hpf U Hyaline Cast (Auto) 1-5 (0-5) /lpf U Epithel Cells (Auto) 0-5 (0-5) /lpf Urine Bacteria (Auto) Negative (Negative) SARS-CoV-2, RNA, NAAT NEGATIVE (NEGATIVE) Imaging Data Radiologist's Impression: Scrotum Ultrasound 11/15/21 12:17 TESTICULAR ULTRASOUND HISTORY: left scrotal swelling COMPARISON: None. FINDINGS: Right testis: 36 x 27 x 16 mm. There are no intratesticular masses. Normal color flow. No hydrocele. The epididymis is unremarkable. Left testis: 34 x 23 x 18 mm. There are no intratesticular masses. Slight increased color flow. There is a large complex multiseptated left-sided hydrocele. This favors a pyocele. IMPRESSION: 1. A large complex multiseptated left-sided hydrocele consistent with a pyocele. 2. Slight increased color flow within the left testis which could represent an associated orchitis. 3. Normal right testis. ACT 112: Negative or not required by law. Electronically signed by: Ho Honeycutt M.D. 11/15/2021 1:59 PM [facility] Narrative Patient comes in as described above he has been having increasing stress scrotal pain and swelling on the left is gotten significantly worse over the last couple days. He had an ultrasound done at [facility] which per his report showed that shows a large hematoma that they had considered draining. IV access was established was given Zofran 4 mg IV for nausea blood work and urinalysis was obtained I did discuss the case with the on-call urologist. He the the patient his white count is now significant elevated. His hemoglobin is stable, compared to old he is no abnormalities of renal function. Ultrasound shows a large hematoma/pyeloma possibly. I did discuss this with Dr. Wilkins and he is going to take him to the OR for drainage of what he thinks is a hematoma. The patient was COVID tested. He has been n.p.o. since last night 8:00 for both food and liquids. I kept him n.p.o. here and also started maintenance fluids given that he was NPO. COVID test was negative. He will be taken the operating room by Dr. Wilkins for drainage. Impression & Plan Left testicular pain, Swelling of left half of scrotum, Lab test negative for COVID-19 virus, Nausea, Status post urological surgery Discharge Plan Visit Data Chief Complaint: Testicular Pain Stated Complaint: TESTICULAR PAIN,SWELLING,S/P SURG ED Provider: Julio Vela Discharge Problem: Left testicular pain, Swelling of left half of scrotum, Lab test negative for COVID-19 virus, Nausea, Status post urological surgery Discharge Instructions Interventions: ED Discharge Assessment Last Done: 11/15/21 15:30
[2021-11-15] MEDS ORDERED: ONDANSETRON INJ 2 MG/ML 2 ML VIAL IV STA (12:13)
[2021-11-15 12:29] LABS: Basophils # (auto) 0.02 K/uL (0-0.2); Basophils % (auto) 0.2 %; Eosinophils # (auto) 0.09 K/uL (0-0.5); Hematocrit (blood only) 34.7 % (42-52); Hemoglobin 11.6 g/dL (14.0-18.0); Immature Granulocytes # (auto) 0.02 K/uL (0.00-0.02); Immature Granulocytes % (auto) 0.2 %; Lymphocytes # (auto) 0.68 K/uL (1.2-3.4); Lymphocytes % (auto) 7.4 %; Mean Corpuscular Hemoglobin 31.5 pg (25-34); Mean Corpuscular Hgb Conc 33.4 g/dL (32-36); Mean Corpuscular Volume 94.3 fL (80-100); Mean Platelet Volume 11.1 fL (7.4-10.4); Neutrophils # (auto) 7.22 K/uL (1.4-6.5); Neutrophils % (auto) 78.2 %; Platelet Count 201 K/uL (130-400); RDW Coefficient of Variation 13.8 % (11.5-14.5); RDW Standard Deviation 47.7 fL (36.4-46.3); Red Blood Count 3.68 M/uL (4.7-6.1); White Blood Count 9.23 K/uL (4.8-10.8)
[2021-11-15 12:39] LABS: Partial Thromboplastin Time 27.6 Seconds (21.0-31.0)
[2021-11-15 12:52] LABS: Alanine Aminotransferase 9 U/L (7-52); Albumin Globulin Ratio 1.3 (0.9-2); Albumin Level 3.2 gm/dl (3.4-5.0); Alkaline Phosphatase 63 U/L (34-104); Anion Gap 6 (3-11); Aspartate Aminotransferase 11 U/L (13-39); BUN Creatinine Ratio 21.1 (10-20); Bilirubin,Total 0.8 mg/dl (0.2-1.0); Blood Urea Nitrogen 24 mg/dl (6-23); Calcium 8.3 mg/dl (8.5-10.1); Carbon Dioxide 21 mmol/L (21-32); Chloride 108 mmol/L (98-107); Est GFR (African American) 68.5 ml/min; Est GFR (Non-African American) 59.1 ml/min; Globulin 2.5 gm/dl (2.5-4.0); Glucose 104 mg/dl (70-99(Fasting)); Potassium 4.3 mmol/L (3.5-5.1); Sodium 135 mmol/L (136-145); Total Protein 5.7 gm/dl (6.0-8.3)
--- NOTE | 2021-11-15 14:00 | Ultrasound Report ---
TESTICULAR ULTRASOUND HISTORY: left scrotal swelling COMPARISON: None. FINDINGS: Right testis: 36 x 27 x 16 mm. There are no intratesticular masses. Normal color flow. No hydrocele. The epididymis is unremarkable. Left testis: 34 x 23 x 18 mm. There are no intratesticular masses. Slight increased color flow. There is a large complex multiseptated left-sided hydrocele. This favors a pyocele. IMPRESSION: 1. A large complex multiseptated left-sided hydrocele consistent with a pyocele. 2. Slight increased color flow within the left testis which could represent an associated orchitis. 3. Normal right testis. ACT 112: Negative or not required by law. Electronically signed by: Ho Honeycutt M.D. 11/15/2021 1:59 PM
[2021-11-15] MEDS: SODIUM CHLORIDE 0.9% 500 ML IV SCH ×2 (14:42→20:08)
[2021-11-15] MEDS ORDERED: BUPIVACAINE 0.5 % 5 MG/1 ML MPF 30ML VIAL ONE (15:30)
[2021-11-15] MEDS ORDERED: fentaNYL citrate 100 MCG/2 ML VIAL IV PRN (15:35)
[2021-11-15] MEDS ORDERED: ePHEDrine sulfate 50 MG/ML AMP IV PRN (15:35)
[2021-11-15] MEDS ORDERED: ONDANSETRON INJ 2 MG/ML 2 ML VIAL IV PRN (15:35)
[2021-11-15] MEDS ORDERED: MEPERIDINE HCL 25 MG/ML CARP/VIAL IV PRN (15:35)
[2021-11-15] MEDS ORDERED: ATROPINE SULFATE 0.1 MG/ML 10ML SYR IV PRN (15:35)
[2021-11-15] MEDS ORDERED: PHENYLEPHRINE 100MCG/ML 5ML SYR IV PRN (15:35)
[2021-11-15] MEDS ORDERED: LABETALOL HCL IV 5 MG/ML 20ML IV PRN (15:35)
[2021-11-15 15:39] LABS: Appearance Urine Clear (Clear); Bacteria Urine Automated Negative (Negative); Bilirubin Urine Negative (Negative); Blood Urine 3+ (Negative); Color Urine Yellow; Epithelial Cell Urine Auto 0-5 /lpf (0-5); Glucose Urine UA Negative (Negative); Ketones Urine Trace (Negative); Leukocyte Esterase Urine 1+ (Negative); Nitrite Urine Negative (Negative); Protein Urine Negative (Negative); RBC Urine Automated 0-4 /hpf (0-4); Specific Gravity Urine 1.006 (1.000-1.030); Urobilinogen Urine Negative (Negative)
--- NOTE | 2021-11-15 15:46 | Anesthesiology Consultation ---
Date of Service November 15, 2021 Assessment & Plan (1) Encounter for pre-operative examination: Chart Review Chart Review: Acceptable Risk for Surgery (emergency) and Patient NOT seen in Pre Admission Testing Consults Requested none History Surgery Operation Date: 11/15/21 16:00 Proposed Procedures p Scrotal Hydrocelectomy - Law Wilkins, Height/Weight Height: 5 ft 8 in Allergies Allergy/AdvReac Type Severity Reaction Status Date / Time naproxen [From Aleve] Allergy Intermediate VISION Verified 11/06/21 11:44 ISSUES adhesive tape Allergy Mild RASH Verified 11/06/21 11:44 amoxicillin Allergy Mild DIZZINESS, Verified 11/06/21 11:44 NAUSEA levofloxacin Allergy Mild DIZZINESS, Verified 11/06/21 11:44 NAUSEA acetaminophen [From Percocet] AdvReac Severe Dizziness Unverified 11/15/21 12:32 oxycodone [From Percocet] AdvReac Severe Dizziness Unverified 11/15/21 12:32 amiodarone AdvReac Intermediate Ocular Verified 11/06/21 11:44 toxicity Medications Home Medications Medication Instructions Recorded Confirmed Last Taken amlodipine 5 mg tablet 5 mg PO BID tab 04/03/19 11/15/21 11/14/21 cholecalciferol (vitamin D3) 25 1,000 units PO QAM cap 12/11/19 11/15/21 11/14/21 mcg (1,000 unit) capsule fluticasone propionate 50 1 spray INTRANASAL PRN g 03/04/20 11/15/21 10/26/21 21:00 mcg/actuation nasal spray,suspension (Allergy Relief (fluticasone)) lisinopril 10 mg tablet 10 mg PO BID 04/28/20 11/15/21 11/14/21 coQ10 (ubiquinol) 100 mg capsule 100 mg PO TID 04/21/21 11/15/21 11/14/21 carvedilol 12.5 mg tablet 12.5 mg PO .COMPLEX #225 tab 06/12/21 11/15/21 11/14/21 multivitamin 1 tab PO QAM 10/15/21 11/15/21 10/26/21 09:00 doxycycline hyclate 100 mg tablet 100 mg PO BID 10 Days #20 tab 11/13/21 11/15/21 11/14/21 Active Medications Generic Name Dose Route Start Last Admin Trade Name Hannah PRN Reason Stop Dose Admin Sodium Chloride 500 mls @ 125 mls/hr 11/15/21 14:45 11/15/21 14:42 Nss IV 12/15/21 14:44 125 mls/hr .Q4H QUINCY Administration NPO Date Last Intake of Fluids: 11/14/21 Time Last Intake of Fluids: 20:00 Date Last Intake of Solids: 11/14/21 Time Last Intake of Solids: 20:00 Past Medical History Medical History Anemia BPH w urinary obs/LUTS Cardiomyopathy unspecified per cardio records, per 2019 echo: EF 45-50%, Moderately dilated LV with mildly reduced systolic function Hypokinesis of base to mid inferoseptum and inferolateral wall Severe hypokinesis to akinesis of the base to mid inferior wall Dyspnea on effort PT DENIES Hypertension controlled, stable per pt Pulmonary embolism HX 1972/1975-NO ISSUES SINCE PVCs (premature ventricular contractions) F/U DR WEN NGUYỄN Rotator cuff tear arthropathy of right shoulder Tear meniscus knee with Levaquin Past Family History Family History Other No known health problems Past Surgical History Surgical History History of back surgery X 5-INCLUDING FUSION History of cardiac cath [facility] NO STENTS-FEW YRS AGO History of colonoscopy History of esophagogastroduodenoscopy (EGD) History of herniorrhaphy X 3 Hx of shoulder surgery LEFT Nausea and vomiting after administration of anesthetic agent Social History Smoking Status: Never smoker Hx Alcohol Use: Yes Alcohol type: beer alcohol intake frequency: holidays/special occasions only Hx Substance Use: No Physical Exam Vital Signs Last Vital Signs Temp 36.4 C L 11/15/21 11:40 Pulse 64 11/15/21 14:00 Resp 18 11/15/21 14:00 BP 130/67 11/15/21 14:00 Pulse Ox 93 11/15/21 14:00 81 kg Testing Laboratory Results 11/15/21 12:15 11/15/21 12:15 PT 11.0 Seconds (9.0-12.0) 11/15/21 12:15 INR 1.0 (0.9-1.1) 11/15/21 12:15 APTT 27.6 Seconds (21.0-31.0) 11/15/21 12:15 Urine Color Yellow 11/15/21 15:07 Urine Appearance Clear (Clear) 11/15/21 15:07 Urine pH 5.0 (4.5-7.5) 11/15/21 15:07 Ur Specific [place] 1.006 (1.000-1.030) 11/15/21 15:07 Urine Protein Negative (Negative) 11/15/21 15:07 Urine Glucose (UA) Negative (Negative) 11/15/21 15:07 Urine Ketones Trace (Negative) H 11/15/21 15:07 Urine Nitrite Negative (Negative) 11/15/21 15:07 Ur Leukocyte Esterase 1+ (Negative) H 11/15/21 15:07 Urine WBC (Auto) 5-10 /hpf (0-5) H 11/15/21 15:07 Urine RBC (Auto) 0-4 /hpf (0-4) 11/15/21 15:07 U Hyaline Cast (Auto) 1-5 /lpf (0-5) 11/15/21 15:07 U Epithel Cells (Auto) 0-5 /lpf (0-5) 11/15/21 15:07 Urine Bacteria (Auto) Negative (Negative) 11/15/21 15:07 Electrocardiogram Date: 10/16/21 DICTATED BY:Jovani Hernandez MD Test Reason : Blood Pressure : / mmHG Vent. Rate : 047 BPM Atrial Rate : 047 BPM P-R Int : 214 ms QRS Dur : 098 ms QT Int : 490 ms P-R-T Axes : 049 018 058 degrees QTc Int : 433 ms Sinus bradycardia with 1st degree A-V block Septal infarct , age undetermined Abnormal ECG When compared with ECG of 28-APR-2020 12:42, Premature ventricular complexes are no longer Present Septal infarct is now Present Confirmed by Jovani Hernandez ([id number]) on 10/17/2021 6:53:15 AM Referred By: Hollis Fernandez Confirmed By:Jovani Hernandez Signed By: Chest X-Ray Date: 10/16/21 XR chest 2V PA/lateral HISTORY: 81 years-old Male N20.0 - Calculus of kidney follow-up study in a patient with renal calculi COMPARISON: Chest radiograph 04/28/2020 TECHNIQUE: PA and lateral views of the chest FINDINGS: The cardiac silhouette is mildly enlarged. Mild linear subsegmental atelectasis/scarring of the lung bases. There is no pneumothorax, pleural effusion, airspace consolidation or overt pulmonary edema. The lungs are mildly hyperinflated. Degenerative changes of the shoulders and spine. IMPRESSION: No acute process. ACT 112: Negative or not required by law. The above report was generated using voice recognition software. It may contain grammatical, syntax or spelling errors. Electronically signed by: Lester Hernandez M.D. 10/16/2021 1:08 PM Dictated:10/16/21 1307 Transcribed: 10/16/21 130 Echocardiogram Date: 01/25/20 EF: 45-50 RWMA: + hypokinetic (inferior wall base) Valvular Disease: + MR (mild)
[2021-11-15] MEDS ORDERED: fentaNYL citrate 100 MCG/2 ML VIAL ONE ×2 (15:54→17:47)
[2021-11-15] MEDS ORDERED: ONDANSETRON INJ 2 MG/ML 2 ML VIAL ONE ×2 (15:55→18:02)
[2021-11-15] MEDS ORDERED: DEXAMETHASONE SOD INJ 4 MG/ML VIAL ONE (15:55)
[2021-11-15] MEDS ORDERED: PROPOFOL IV EMULSION 10 MG/ML 20 ML VIAL IV ONE ×2 (15:55)
[2021-11-15] MEDS ORDERED: LIDOCAINE 2% 2 ML VIAL/AMP(20MG/ML) INFIL ONE (15:55)
--- NOTE | 2021-11-15 16:11 | History & Physical Report ---
Date of Service November 15, 2021 Assessment & Plan (1) Scrotal swelling: Plan: Likely large hematoma after hydrocelectomy. Multiple trips to ER. Had U/s x 2 consistent with hematoma/fluid collection. Functioning testicle bilateral. No Fever. No significant white count. Had Abx started at home. Risks and benefits discussed at length for procedure. These include bleeding, infection, injury to surrounding tissues or organs, and risks associated with anesthesia. Patient states understanding and agrees to proceed. Will sign consent and proceed. Discussed possible issues post op. Recommend conservative measures for management. Long conversation of conservative management. Discussed scrotal support when ambulating, Scrotal elevation when sitting/laying flat, Ice (20 mins on/20 mins off) when acutely swollen or tender, Heating Pad (20 mins on/20 mins off) when sore, and avoidance of injury/protection when active. Plan for scrotal exploration and incision and drainage of complex hydrocele/hematoma. History of Present Illness Primary Care Provider: Luz Maria Parisi MD Patient here for procedure. Had hydrocelectomy with Dr. Fernandez. Developed swelling after restarting ASA. Likely large hematoma. N/V with pain meds. No other changes in medical issues. No major changes in urinary issues. Continued issues and concerns. No change in pain or discomfort. No severe fevers or chills. No chest pain or shortness of breath. Risks and benefits discussed at length for procedure. These include bleeding, infection, injury to surrounding tissues or organs, and risks associated with anesthesia. Patient and/or family states understanding and agrees to proceed. Consent and supporting information completed. Allergies Allergy/AdvReac Type Severity Reaction Status Date / Time naproxen [From Aleve] Allergy Intermediate VISION Verified 11/06/21 11:44 ISSUES adhesive tape Allergy Mild RASH Verified 11/06/21 11:44 amoxicillin Allergy Mild DIZZINESS, Verified 11/06/21 11:44 NAUSEA levofloxacin Allergy Mild DIZZINESS, Verified 11/06/21 11:44 NAUSEA acetaminophen [From Percocet] AdvReac Severe Dizziness Unverified 11/15/21 12:32 oxycodone [From Percocet] AdvReac Severe Dizziness Unverified 11/15/21 12:32 amiodarone AdvReac Intermediate Ocular Verified 11/06/21 11:44 toxicity Home Medications Medication Instructions Recorded Confirmed Type amlodipine 5 mg tablet 5 mg PO BID tab 04/03/19 11/15/21 History cholecalciferol (vitamin D3) 25 1,000 units PO QAM cap 12/11/19 11/15/21 History mcg (1,000 unit) capsule fluticasone propionate 50 1 spray INTRANASAL PRN g 03/04/20 11/15/21 History mcg/actuation nasal spray,suspension (Allergy Relief (fluticasone)) lisinopril 10 mg tablet 10 mg PO BID 04/28/20 11/15/21 History coQ10 (ubiquinol) 100 mg capsule 100 mg PO TID 04/21/21 11/15/21 History carvedilol 12.5 mg tablet 12.5 mg PO .COMPLEX #225 tab 06/12/21 11/15/21 Rx multivitamin 1 tab PO QAM 10/15/21 11/15/21 History doxycycline hyclate 100 mg tablet 100 mg PO BID 10 Days #20 tab 11/13/21 11/15/21 Rx Past Med/Surg History Medical History Anemia BPH w urinary obs/LUTS Cardiomyopathy unspecified per cardio records, per 2019 echo: EF 45-50%, Moderately dilated LV with mildly reduced systolic function Hypokinesis of base to mid inferoseptum and inferolateral wall Severe hypokinesis to akinesis of the base to mid inferior wall Dyspnea on effort PT DENIES Hypertension controlled, stable per pt Pulmonary embolism HX 1972/1975-NO ISSUES SINCE PVCs (premature ventricular contractions) F/U DR WEN NGUYỄN Rotator cuff tear arthropathy of right shoulder Tear meniscus knee with Levaquin Surgical History History of back surgery X 5-INCLUDING FUSION History of cardiac cath [facility] NO STENTS-FEW YRS AGO History of colonoscopy History of esophagogastroduodenoscopy (EGD) History of herniorrhaphy X 3 Hx of shoulder surgery LEFT Nausea and vomiting after administration of anesthetic agent Family History Other No known health problems Social History Smoking Status: Never smoker Second Hand Exposure: No; Hx Alcohol Use: Yes Alcohol type: beer Hx Substance Use: No Preferred Language: Georgian Communication Ability: Effective Mma Fighter Required: No Beliefs That Will Affect Care: None marital status: / Current Living Situation: Alone current occupational status: retired How many Children do You have: 1 Feels Safe at Home: Yes Assistive Devices: None Review of Systems All systems reviewed & are unremarkable except as noted in HPI & below Physical Exam Physical Exam: General: Alert/Arousable. No Acute illness. . HEENT: Inspection normal. Normal inspection of face. Normal inspection of neck. Psychologic: Normal affect/No change in mentation. Respiratory: No use of accessory muscles. No respiratory changes or exacerbation or changes with tachypnea or dyspnea. Cardiovascular: No tachycardia Skin: [place] and Dry. No new rashes or visible lesions. Abdomen: Normal inspection. No guarding. : Large Likely hematoma of scrotum Results & Data ([facility]) Vital Signs (Past 12 Hours) Vital Signs Temp Pulse Pulse Resp BP BP Pulse Ox 11/15/21 14:00 64 18 130/67 93 11/15/21 12:31 53 L 16 122/59 L 92 11/15/21 12:15 60 18 94 11/15/21 11:40 36.4 C L 60 18 126/65 94 PG Care Time/CCT Total # of Minutes Spent Total Time Spent with Patient: Total time spent is greater than 50% in coordination of care (as documented) at patient's floor/unit and/or counseling patient: Coding Level of Care Code 95077 Initial Inpt Care Lvl 3 Diagnoses Scrotal swelling N50.89
[2021-11-15] MEDS ORDERED: ePHEDrine sulfate 50 MG/ML SYR ONE (16:32)
[2021-11-15] MEDS ORDERED: ceFAZolin 330 MG/ML 1 GM VIAL ONE (16:32)
[2021-11-15] MEDS ORDERED: ceFAZolin 2000MG 2,000 MG/15 ML SYR IV ONE ×2 (16:38→17:21)
[2021-11-15] MEDS ORDERED: VANCOMYCIN HCL 1000MG/20ML VIAL ONE (16:41)
[2021-11-15] MEDS ORDERED: BACITRACIN OINT 15 GM TUBE ONE (17:01)
--- NOTE | 2021-11-15 17:13 | Operative Report ---
PG Post Operative Report Pre & Post Diagnosis Operation Date: 11/15/21 16:00 Pre-Op Diagnosis: Testicular Pain Swelling Post-Op Diagnosis: Complex Seroma/Hematoma I identified the patient and participated in the time-out.: Yes Procedure Operation Date: 11/15/21 16:00 Actual Procedures p Scrotal Exploration with Left Incision and Drainage of Complex S eroma/Hematoma(Bilateral) - Law Wilkins DO Surgeon Law Wilkins, II, DO Arnp None Estimated Blood Loss 5 Findings Consistent with Post-Op Diagnosis Severely swollen left hemiscrotum with large seroma of straw colored fluid with small pockets of hematoma and multiple areas of loculation. No purulence or debris. Testicle appeared viable. Specimens None Drains Aurora Drain Anesthesia Type MAC Complications none Disposition Disposition: Recovery Room Indications Bothersome scrotal fluid collection developed after hydrocele repair by Dr. Fernandez. Risks and benefits discussed at length. Description of Procedure Patient was consented and brought back to the operating room. Patient was placed under anesthesia in the supine position. Patient was prepped and draped in the regular sterile fashion. A time out was completed. With the time out completed and the patient prepped, the previous incision site was marked and local injected into the subcutaneous tissues. A cord block was completed at the scrotal junction. An incision was made with a scalpel and the deep tissues were dissected with bovie electrocautery. A large seroma was then drained with small pockets of hematoma. This area was probed with a finger and multiple loculations were destroyed and broken up. Additional fluid drained from around the cord and inguinal ring. Fluid appeared to be seroma. No considerable areas of purulence of debris. The testicle was delivered and found to be viable without issues. All important structures and landmarks were identified The scrotum was irrigated with copious amounts of saline with vancomycin. No areas of bleeding and no considerable areas of debris. A cord block was completed with additional local anesthetic. The entire area was examined. It was decided to place a Aurora drain in the dependant portion of the scrotum to drain the hemiscrotum. The drain was placed and suture with a 3-0 Silk suture. The testicle appeared viable without lesions or other areas of concern. The Testicle was placed into the hemiscrotum in anatomic position without any torsion of the cord. Additional irrigation was completed with the vancomycin solution. The deep and subcutaneous tissues were closed with a running 3-0 vicryl suture. A 2-0 Vicryl suture was then used to close the skin in a running fashion. The area was cleaned. Ointment was placed on the wound. A scrotal support was placed with dressings. The patient was cleaned, aroused from anesthesia, and transferred to the pacu in stable condition having tolerated the procedure well with no complications. I was present and participated in all aspects of the procedure. Plan to maintain drain for 5-7 days and followup for wound check with nursing. Postoperative instructions and activity were discussed prior to procedure and information will be included with the discharge paper work. Patient will be monitored in pacu and likely discharged if no issues after anesthesia. I attest to the content of the Intraoperative Record and any orders documented therein. Any exceptions are noted below.
--- NOTE | 2021-11-15 17:23 | Anesthesiology Progress Note ---
Date of Service November 15, 2021 Anesthesia Post Procedure Vital Signs Vital Signs: Temp Pulse Pulse Resp BP BP Pulse Ox 11/15/21 14:00 64 18 130/67 93 11/15/21 12:31 53 L 16 122/59 L 92 11/15/21 12:15 60 18 94 11/15/21 11:40 36.4 C L 60 18 126/65 94 Pain Intensity Bilateral Testicles: Pain Intensity: 1 Transfer of Care Handoff Completed per policy Notes Mental Status: alert / awake / arousable Patient Amnestic to Procedure: Yes Nausea / Vomiting: adequately controlled Pain: adequately controlled Airway Patency, RR, SpO2: stable & adequate BP & HR: stable & adequate Hydration State: stable & adequate Anesthetic Complications: no major complications apparent and Pt Satisfied with anesthetic care Notes: The patient is awake and comfortable in recovery. His vital signs are stable with SpO2 96 on room air.
[2021-11-15] MEDS ORDERED: oxyCODONE/ACETAMINOPHEN 5mg/325mg TAB PO PRN (19:10)
[2021-11-15] MEDS: DOXYCYCLINE HYCLATE 100 MG CAP PO SCH (20:39)
[2021-11-15] MEDS: amLODIPine BESYLATE 5 MG TAB PO SCH (20:40)
[2021-11-15] MEDS: lisinopril 10 MG TAB PO SCH (20:40)
[2021-11-16] MEDS: SODIUM CHLORIDE 0.9% 500 ML IV SCH ×4 (00:25→12:04)
[2021-11-16] MEDS ORDERED: carvediloL 6.25 MG TAB PO SCH ×3 (07:30→16:30)
--- NOTE | 2021-11-16 08:14 | Urology Progress Note ---
Date of Service November 16, 2021 Assessment & Plan (1) Scrotal hematoma: (2) Status post urological surgery: Plan: 81yo M who is s/p hydrocele and TURP last month and presented with worsening swelling/pain to left testicle and had scrotal ultrasound x 2 consistent with hematoma/fluid collection. - POD #1 s/p Scrotal Exploration with Left Incision and Drainage of Complex Seroma/Hematoma with Dr. Wilkins. - Pt admitted postoperatively d/t severe pain, n/v. - Hospital medicine consulted, appreciate recommendations. - Afebrile. - Labs reviewed - Wbc and creatinine normal, Hemoglobin 11.6. - Voiding without issue. - Surgical incisions appropriate. Holman drain intact. Plan- - Reviewed with Dr. Wilkins. - Pt subjectively feeling much better today, minimal pain. - Discussed with hospital team, ok for discharge from their perspective. - Maintain Lesley drain. - Pt to continue antibiotics (Doxycyline) on discharge. - Will arrange outpatient follow-up with our service. - Pt stable for discharge home today. Admission and Anticipated Discharge Date Admission Date: November 15, 2021 Subjective Pt examined at bedside this AM. Awake, sitting at bedside on arrival. No acute distress. No fevers. Minimal pain. Overall feeling much better. Incision appropriate. Scrotal support in place. Lesley drain intact. Minimal drainage. Had some nausea after breakfast but much improved. No vomiting. + Flatus. LBM yesterday morning. Ambulating without issue. Review of Systems Constitutional: as per Subjective / HPI Gastrointestinal: as per Subjective / HPI Genitourinary: + as per Subjective / HPI Physical Exam Constitutional: no acute distress Respiratory: no respiratory distress and no labored breathing Cardiovascular: Extremities: no calf tenderness Gastrointestinal (Abdomen): Inspection/Auscultation: abdomen normal to inspection Neurologic: moves all extremities and awake Psychiatric: Orientation: alert, oriented x 3 and cooperative Genitourinary: Scrotal support in place, small amount of serous drainage noted. Lesley drain in place. Minimally tender to palpation Results & Data ([facility]) Vital Signs (Past 12 Hours) Vital Signs Temp Pulse Pulse Pulse Resp BP BP 11/16/21 07:56 36.8 C 65 16 103/49 L 11/16/21 04:16 36.6 C 60 18 118/67 11/15/21 23:27 57 L 11/15/21 23:09 36.8 C 57 L 18 112/59 L 11/15/21 22:24 36.6 C 72 18 119/72 11/15/21 22:18 74 Pulse Ox 11/16/21 07:56 99 11/16/21 04:16 95 11/15/21 23:27 11/15/21 23:09 92 11/15/21 22:24 93 11/15/21 22:18 PG Care Time/CCT Total # of Minutes Spent Total Time Spent with Patient: Total time spent is greater than 50% in coordination of care (as documented) at patient's floor/unit and/or counseling patient: Coding Level of Care Code 48344 Subseq Hosp Care Lvl 2 Diagnoses Scrotal hematoma S30.22XA Status post urological surgery Z98.890
--- NOTE | 2021-11-16 08:16 | Hospitalist Consultation ---
Date of Consultation November 16, 2021 Assessment & Plan (1) Scrotal hematoma: s/p hydrocele and TURP last month with Urology Worsening swelling/pain and went to [place], with hematoma x 2 Urology admitted, taken to OR for p Scrotal Exploration with Left Incision and Drainage of Complex Seroma/Hematoma(Bilateral) - Law Cornejo, DO Given Vanco/Ancef operative period, continued on DOxy PO. OP report without evidence for infection. UA without bacteria but had been on abx SPRAY CREW from [place] Afebrile, but WBC slightly elevated. ?stress/nausea. --> Reported improvement of n/v post-operatively. [place] related to anesthesia/pain medications as patient very sensitive Repeat CTAP last evening Left scrotal surgical drainage catheter is in place with a large left complex hydrocele containing air and peripheral enhancement. Findings may represent a pyocele and is better characterized on the scrotal ultrasound of same day. --> Continued on Doxy, no cx during OP. BACTRIM ALSO SENT AT DISCHARGE. Cr stable --> Does not cholelithiasis, but LFTs wnl. No RUQ pain on exam. COnsider low fat diet Indeterminate 10 mm exophytic lesion of the superior pole right kidney. This could be correlated with a nonemergent renal ultrasound --> can be done outpatient No cp/sob. No arrhythmia on telemetry. Discussed with Urology, possible d/c with PO tramadol if needed for pain vs tylenol. Could also sent ODT Zofran to use with pain medication if needed (2) Scrotal swelling: improving scrotal support, f/u urology (3) Left testicular pain: none reported today -- see above (4) Nausea: minimal nausea with breakfast, first thing he ate really since surgery but improving this morning Zofran prn, consider ODT at d/c No cp/sob/abd pain (5) Benign localized prostatic hyperplasia with lower urinary tract symptoms (LUTS): continue flomax this evening, not ordered last evening (6) Hypertension: stable, continued on lisinopril, carvedilol, amlodipine (7) Cardiomyopathy: follows with Dr Duval, hx PVCs Stable at this time, continue home medications Thank you for allowing hospitalist service to participate in the care of Mr Pitts. Please contact with any questions/concerns History of Present Illness Reason for Consultation: med management, post op pain/n/v Requesting Physician: Dr Cornejo Attending Physician: Law Cornejo, II, DO History of Present Illness 81yo male with PMHx significant for CAD, HTN, PE, cardiomyopathy, BPH presented for testicular swelling. He is s/p TURP/hydrocele repair approximately 3 weeks ago presented with testicular swelling increased over the prior couple of days and had contacted Urology this past Tuesday. They ordered UA, performed. Went to [facility], had ultrasound done with which showed a large blood collection. Started abx at home in form of Bactrim. Underwent Scrotal Explorationwith Left Incision and Drainage of Complex Se rae/Hematoma(Bilateral) - Law Cornejo, DO. OP report with large seroma straw colored fluid with small pockets of hematoma and multiple areas of loculation. Had significant pain when standing post-operatively and decision made to monitor overnight. He notes the nausea post-operatively he thought was related to pain. Issues with percocet this past week from [place] and was hallucinating with such and hesitant to take anything else. DIscussed will pass along possible tramadol if needed +/- ODT Zofran. He had some nausea after breakfast but much improved. No fever, chills, chest pain, shortness of breath (endorses hx PVCs, hx pericarditis and follows with Dr Duval. No abdominal pain, nausea at present, dysuria. Scrotal support changed this morning, drain in place and functioning. Scant drainage. He is hopeful for discharge later today after seen by Urology. Questions/concerns addressed at this time. Allergies Allergy/AdvReac Type Severity Reaction Status Date / Time naproxen [From Aleve] Allergy Intermediate VISION Verified 11/06/21 11:44 ISSUES adhesive tape Allergy Mild RASH Verified 11/06/21 11:44 amoxicillin Allergy Mild DIZZINESS, Verified 11/06/21 11:44 NAUSEA levofloxacin Allergy Mild DIZZINESS, Verified 11/06/21 11:44 NAUSEA acetaminophen [From Percocet] AdvReac Severe Dizziness Unverified 11/15/21 12:32 oxycodone [From Percocet] AdvReac Severe Dizziness Unverified 11/15/21 12:32 amiodarone AdvReac Intermediate Ocular Verified 11/06/21 11:44 toxicity Home Medications Medication Instructions Recorded Confirmed Type amlodipine 5 mg tablet 5 mg PO BID tab 04/03/19 11/15/21 History cholecalciferol (vitamin D3) 25 1,000 units PO QAM cap 12/11/19 11/15/21 History mcg (1,000 unit) capsule fluticasone propionate 50 1 spray INTRANASAL PRN g 03/04/20 11/15/21 History mcg/actuation nasal spray,suspension (Allergy Relief (fluticasone)) lisinopril 10 mg tablet 10 mg PO BID 04/28/20 11/15/21 History coQ10 (ubiquinol) 100 mg capsule 100 mg PO TID 04/21/21 11/15/21 History carvedilol 12.5 mg tablet 12.5 mg PO .COMPLEX #225 tab 06/12/21 11/15/21 Rx multivitamin 1 tab PO QAM 10/15/21 11/15/21 History doxycycline hyclate 100 mg tablet 100 mg PO BID 10 Days #20 tab 11/13/21 11/15/21 Rx phenazopyridine 200 mg tablet 200 mg PO Q8H PRN #10 tab 11/15/21 Rx (Pyridium) sulfamethoxazole 800 1 tab PO Q12H #10 tab 11/15/21 Rx mg-trimethoprim 160 mg tablet (Bactrim DS) tamsulosin 0.4 mg capsule 0.4 mg PO HS #30 cap 11/15/21 Rx Patient History Medical History (Updated 11/16/21 @ 09:41 by Digna Pagan PA-C) Anemia BPH w urinary obs/LUTS Cardiomyopathy unspecified per cardio records, per 2019 echo: EF 45-50%, Moderately dilated LV with mildly reduced systolic function Hypokinesis of base to mid inferoseptum and inferolateral wall Severe hypokinesis to akinesis of the base to mid inferior wall Dyspnea on effort PT DENIES Hypertension controlled, stable per pt Pulmonary embolism HX 1972/1975-NO ISSUES SINCE PVCs (premature ventricular contractions) F/U DR WEN DUVAL Rotator cuff tear arthropathy of right shoulder Tear meniscus knee with Levaquin Surgical History History of back surgery X 5-INCLUDING FUSION [facility] History of colonoscopy History of esophagogastroduodenoscopy (EGD) History of herniorrhaphy X 3 Hx of shoulder surgery LEFT Nausea and vomiting after administration of anesthetic agent Family History Other No known health problems Social History Smoking Status: Never smoker Second Hand Exposure: No; Do You Dip or Chew Tobacco: No; Hx Alcohol Use: Yes Alcohol type: beer Hx Substance Use: No Preferred Language: [place] Communication Ability: Effective [employer] Required: No Beliefs That Will Affect Care: None marital status: / Current Living Situation: Alone Current Living Situation Comment: Son is next door neighboor current occupational status: retired How many Children do You have: 1 Other Information That Helps Us Care for You: No Feels Safe at Home: Yes Safety Concerns: Feels Safe At This Time Assistive Devices: Glasses Review of Systems Review of Systems: All systems reviewed & are unremarkable except as noted in HPI & below Physical Exam Physical Exam: General: WN, WD male sitting in bed talking on phone, no acute distress HEENT: head normocephalic, atraumatic, mmm, trachea midline without deviation Resp: CTAB, bibasilar crackles (improved with cough), no w/c/r, on room air CV: RRR, occasional PVC, no m/r/g, no calf edema, pulses palpable GI:+BS, soft, nontender : no fajardo, scrotal support in place, serous drainage noted to inferior as pect, drain in place, minimally tender to palpation Psych: AOx3, cooperative and pleasant Neuro/Msk: moves all extremities, no pronator drift, no slurred speech, CN intact grossly, answering questions appropriately Results & Data Results & Data ([facility]) Vital Signs (Past 12 Hours) Vital Signs Temp Pulse Pulse Pulse Resp BP BP 11/16/21 07:56 36.8 C 65 16 103/49 L 11/16/21 04:16 36.6 C 60 18 118/67 11/15/21 23:27 57 L 11/15/21 23:09 36.8 C 57 L 18 112/59 L 11/15/21 22:24 36.6 C 72 18 119/72 11/15/21 22:18 74 Pulse Ox 11/16/21 07:56 99 11/16/21 04:16 95 11/15/21 23:27 11/15/21 23:09 92 11/15/21 22:24 93 11/15/21 22:18 Laboratory Results 11/16/21 11/16/21 11/15/21 Range/Units 08:36 08:36 15:07 WBC 12.16 H (4.8-10.8) K/uL RBC 3.55 L (4.7-6.1) M/uL Hgb 11.0 L (14.0-18.0) g/dL Hct 33.3 L (42-52) % MCV 93.8 (80-100) fL MCH 31.0 (25-34) pg MCHC 33.0 (32-36) g/dL RDW Std Deviation 47.2 H (36.4-46.3) fL RDW Coeff of Klaus 13.7 (11.5-14.5) % Plt Count 237 (130-400) K/uL MPV 11.3 H (7.4-10.4) fL Immature Gran % (Auto) % Neut % (Auto) % Lymph % (Auto) % [place] % (Auto) % Eos % (Auto) % Baso % (Auto) % Neut # (Auto) (1.4-6.5) K/uL Lymph # (Auto) (1.2-3.4) K/uL [place] # (Auto) (0.11-0.59) K/uL Eos # (Auto) (0-0.5) K/uL Baso # (Auto) (0-0.2) K/uL Immature Gran # (Auto) (0.00-0.02) K/uL PT (9.0-12.0) Seconds INR (0.9-1.1) APTT (21.0-31.0) Seconds PTT Ratio Sodium 138 (136-145) mmol/L Potassium 4.3 (3.5-5.1) mmol/L Chloride 112 H (98-107) mmol/L Carbon Dioxide 21 (21-32) mmol/L Anion Gap 5 (3-11) BUN 22 (6-23) mg/dl Creatinine 1.05 (0.6-1.4) mg/dl Est Cr Clr Drug Dosing 51.6 Est GFR ( Amer) 75.7 ml/min Est GFR (Non-Af Amer) 65.3 ml/min BUN/Creatinine Ratio 21.0 H (10-20) Glucose 151 H (70-99(Fasting)) mg/dl Calcium 8.2 L (8.5-10.1) mg/dl Total Bilirubin (0.2-1.0) mg/dl AST (13-39) U/L ALT (7-52) U/L Alkaline Phosphatase (34-104) U/L Total Protein (6.0-8.3) gm/dl Albumin (3.4-5.0) gm/dl Globulin (2.5-4.0) gm/dl Albumin/Globulin Ratio (0.9-2) Urine Color Yellow Urine Appearance Clear (Clear) Urine pH 5.0 (4.5-7.5) Ur Specific [place] 1.006 (1.000-1.030) Urine Protein Negative (Negative) Urine Glucose (UA) Negative (Negative) Urine Ketones Trace H (Negative) Urine Blood 3+ H (Negative) Urine Nitrite Negative (Negative) Urine Bilirubin Negative (Negative) Urine Urobilinogen Negative (Negative) Ur Leukocyte Esterase 1+ H (Negative) Urine WBC (Auto) 5-10 H (0-5) /hpf Urine RBC (Auto) 0-4 (0-4) /hpf U Hyaline Cast (Auto) 1-5 (0-5) /lpf U Epithel Cells (Auto) 0-5 (0-5) /lpf Urine Bacteria (Auto) Negative (Negative) SARS-CoV-2, RNA, NAAT (NEGATIVE) 11/15/21 11/15/21 11/15/21 Range/Units 14:48 12:15 12:15 WBC (4.8-10.8) K/uL RBC (4.7-6.1) M/uL Hgb (14.0-18.0) g/dL Hct (42-52) % MCV (80-100) fL MCH (25-34) pg MCHC (32-36) g/dL RDW Std Deviation (36.4-46.3) fL RDW Coeff of Klaus (11.5-14.5) % Plt Count (130-400) K/uL MPV (7.4-10.4) fL Immature Gran % (Auto) % Neut % (Auto) % Lymph % (Auto) % [place] % (Auto) % Eos % (Auto) % Baso % (Auto) % Neut # (Auto) (1.4-6.5) K/uL Lymph # (Auto) (1.2-3.4) K/uL [place] # (Auto) (0.11-0.59) K/uL Eos # (Auto) (0-0.5) K/uL Baso # (Auto) (0-0.2) K/uL Immature Gran # (Auto) (0.00-0.02) K/uL PT 11.0 (9.0-12.0) Seconds INR 1.0 (0.9-1.1) APTT 27.6 (21.0-31.0) Seconds PTT Ratio 1.0 Sodium 135 L (136-145) mmol/L Potassium 4.3 (3.5-5.1) mmol/L Chloride 108 H (98-107) mmol/L Carbon Dioxide 21 (21-32) mmol/L Anion Gap 6 (3-11) BUN 24 H (6-23) mg/dl Creatinine 1.14 (0.6-1.4) mg/dl Est Cr Clr Drug Dosing Not Reportable Est GFR ( Amer) 68.5 ml/min Est GFR (Non-Af Amer) 59.1 ml/min BUN/Creatinine Ratio 21.1 H (10-20) Glucose 104 H (70-99(Fasting)) mg/dl Calcium 8.3 L (8.5-10.1) mg/dl Total Bilirubin 0.8 (0.2-1.0) mg/dl AST 11 L (13-39) U/L ALT 9 (7-52) U/L Alkaline Phosphatase 63 (34-104) U/L Total Protein 5.7 L (6.0-8.3) gm/dl Albumin 3.2 L (3.4-5.0) gm/dl Globulin 2.5 (2.5-4.0) gm/dl Albumin/Globulin Ratio 1.3 (0.9-2) Urine Color Urine Appearance (Clear) Urine pH (4.5-7.5) Ur Specific [place] (1.000-1.030) Urine Protein (Negative) Urine Glucose (UA) (Negative) Urine Ketones (Negative) Urine Blood (Negative) Urine Nitrite (Negative) Urine Bilirubin (Negative) Urine Urobilinogen (Negative) Ur Leukocyte Esterase (Negative) Urine WBC (Auto) (0-5) /hpf Urine RBC (Auto) (0-4) /hpf U Hyaline Cast (Auto) (0-5) /lpf U Epithel Cells (Auto) (0-5) /lpf Urine Bacteria (Auto) (Negative) SARS-CoV-2, RNA, NAAT NEGATIVE (NEGATIVE) 11/15/21 Range/Units 12:15 WBC 9.23 (4.8-10.8) K/uL RBC 3.68 L (4.7-6.1) M/uL Hgb 11.6 L (14.0-18.0) g/dL Hct 34.7 L (42-52) % MCV 94.3 (80-100) fL MCH 31.5 (25-34) pg MCHC 33.4 (32-36) g/dL RDW Std Deviation 47.7 H (36.4-46.3) fL RDW Coeff of Klaus 13.8 (11.5-14.5) % Plt Count 201 (130-400) K/uL MPV 11.1 H (7.4-10.4) fL Immature Gran % (Auto) 0.2 % Neut % (Auto) 78.2 % Lymph % (Auto) 7.4 % [place] % (Auto) 13.0 % Eos % (Auto) 1.0 % Baso % (Auto) 0.2 % Neut # (Auto) 7.22 H (1.4-6.5) K/uL Lymph # (Auto) 0.68 L (1.2-3.4) K/uL [place] # (Auto) 1.20 H (0.11-0.59) K/uL Eos # (Auto) 0.09 (0-0.5) K/uL Baso # (Auto) 0.02 (0-0.2) K/uL Immature Gran # (Auto) 0.02 (0.00-0.02) K/uL PT (9.0-12.0) Seconds INR (0.9-1.1) APTT (21.0-31.0) Seconds PTT Ratio Sodium (136-145) mmol/L Potassium (3.5-5.1) mmol/L Chloride (98-107) mmol/L Carbon Dioxide (21-32) mmol/L Anion Gap (3-11) BUN (6-23) mg/dl Creatinine (0.6-1.4) mg/dl Est Cr Clr Drug Dosing Est GFR ( Amer) ml/min Est GFR (Non-Af Amer) ml/min BUN/Creatinine Ratio (10-20) Glucose (70-99(Fasting)) mg/dl Calcium (8.5-10.1) mg/dl Total Bilirubin (0.2-1.0) mg/dl AST (13-39) U/L ALT (7-52) U/L Alkaline Phosphatase (34-104) U/L Total Protein (6.0-8.3) gm/dl Albumin (3.4-5.0) gm/dl Globulin (2.5-4.0) gm/dl Albumin/Globulin Ratio (0.9-2) Urine Color Urine Appearance (Clear) Urine pH (4.5-7.5) Ur Specific [place] (1.000-1.030) Urine Protein (Negative) Urine Glucose (UA) (Negative) Urine Ketones (Negative) Urine Blood (Negative) Urine Nitrite (Negative) Urine Bilirubin (Negative) Urine Urobilinogen (Negative) Ur Leukocyte Esterase (Negative) Urine WBC (Auto) (0-5) /hpf Urine RBC (Auto) (0-4) /hpf U Hyaline Cast (Auto) (0-5) /lpf U Epithel Cells (Auto) (0-5) /lpf Urine Bacteria (Auto) (Negative) SARS-CoV-2, RNA, NAAT (NEGATIVE) Diagnostic Findings Scrotum Ultrasound 11/15/21 12:17 TESTICULAR ULTRASOUND HISTORY: left scrotal swelling COMPARISON: None. FINDINGS: Right testis: 36 x 27 x 16 mm. There are no intratesticular masses. Normal color flow. No hydrocele. The epididymis is unremarkable. Left testis: 34 x 23 x 18 mm. There are no intratesticular masses. Slight increased color flow. There is a large complex multiseptated left-sided hydrocele. This favors a pyocele. IMPRESSION: 1. A large complex multiseptated left-sided hydrocele consistent with a pyocele. 2. Slight increased color flow within the left testis which could represent an associated orchitis. 3. Normal right testis. ACT 112: Negative or not required by law. Electronically signed by: Ho Honeycutt M.D. 11/15/2021 1:59 PM Abdomen/Pelvis CT 11/15/21 19:[address] WITHOUT CONTRAST CT DOSE: 482.56 mGy.cm HISTORY: Acute left inguinal pain with reported recent scrotal surgery Abd/Groin Pain TECHNIQUE: Multiaxial CT images of the abdomen and pelvis were performed without contrast. A dose lowering technique was utilized adhering to the principles of ALARA. COMPARISON STUDY: Scrotal ultrasound of same day FINDINGS: Mild cardiomegaly. Trace pleural effusions with mild subsegmental bibasilar consolidation. There is no pneumatosis or pneumoperitoneum. The unenhanced spleen is unremarkable with a few calcified granulomata. Moderate generalized pancreatic atrophy. Unremarkable adrenal glands. Cholelithiasis without CT evidence of acute cholecystitis. Subcentimeter hypodensity of the left hepatic lobe adjacent to the falciform ligament may represent a cyst with additional 2 cm cyst within the inferior right hepatic lobe. There is no hydronephrosis. 3.2 cm exophytic cyst of the inferior pole left kidney with small focus of layering milk of calcium. There is a 10 mm indeterminate intermediate density lesion involving the superior pole right kidney on image 137. No renal or ureteral calculi are identified. Prostamegaly. Urinary bladder wall thickening with perivesicular stranding. A left scrotal drainage catheter is present. Scrotal soft tissue swelling is noted with a complex left-sided hydrocele containing air, debris and peripheral enhancement. Atherosclerosis of the abdominal aorta. No lymphadenopathy identified. Small hiatal hernia. There is no bowel obstruction or bowel wall thickening. Mild fecal retention. No CT evidence of acute appendicitis. Trace free fluid within the inferior right pericolic gutter. Degenerative changes of the spine, pelvis and hips. L4 vertebral body hemangioma. IMPRESSION: 1. Left scrotal surgical drainage catheter is in place with a large left complex hydrocele containing air and peripheral enhancement. Findings may represent a pyocele and is better characterized on the scrotal ultrasound of same day. 2. Prostamegaly with findings suggestive of chronic bladder outlet obstruction. Correlate with urinalysis to exclude cystitis. 3. No renal or ureteral calculi or hydronephrosis. 4. Trace pleural effusions with mild linear bibasilar consolidation suggestive of atelectasis. 5. Cholelithiasis. 6. Indeterminate 10 mm exophytic lesion of the superior pole right kidney. This could be correlated with a nonemergent renal ultrasound. 7. Additional findings as above. ACT 112: Negative or not required by law. The above report was generated using voice recognition software. It may contain grammatical, syntax or spelling errors. Electronically signed by: Lester Hernandez M.D. 11/16/2021 8:34 AM PG Care Time/CCT Total # of Minutes Spent Total Time Spent with Patient: Total time spent is greater than 50% in coordination of care (as documented) at patient's floor/unit and/or counseling patient: Coding Level of Care Code 72811 Office/OBS Consult Lvl 3 Diagnoses Scrotal hematoma S30.22XA Scrotal swelling N50.89 Left testicular pain N50.812 Nausea R11.0 Benign localized prostatic hyperplasia with lower urinary tract symptoms (LUTS) N40.1 Hypertension I10 Cardiomyopathy I42.9
--- NOTE | 2021-11-16 08:36 | CT Scan Report ---
ABDOMEN AND PELVIS CT WITHOUT CONTRAST CT DOSE: 482.56 mGy.cm HISTORY: Acute left inguinal pain with reported recent scrotal surgery Abd/Groin Pain TECHNIQUE: Multiaxial CT images of the abdomen and pelvis were performed without contrast. A dose lo wering technique was utilized adhering to the principles of ALARA. COMPARISON STUDY: Scrotal ultrasound of same day FINDINGS: Mild cardiomegaly. Trace pleural effusions with mild subsegmental bibasilar consolidation. There is no pneumatosis or pneumoperitoneum. The unenhanced spleen is unremarkable with a few calcifi ed granulomata. Moderate generalized pancreatic atrophy. Unremarkable adrenal glands. Cholelithiasis without CT evidence of acute cholecystitis. Subcentimeter hypodensity of the left hepatic lobe adjace nt to the falciform ligament may represent a cyst with additional 2 cm cyst within the inferior right hepatic lobe. There is no hydronephrosis. 3.2 cm exophytic cyst of the inferior pole left kidney with small focus o f layering milk of calcium. There is a 10 mm indeterminate intermediate density lesion involving the superior pole right kidney on image 137. No renal or ureteral calculi are identified. Prostamegaly. U rinary bladder wall thickening with perivesicular stranding. A left scrotal drainage catheter is pres ent. Scrotal soft tissue swelling is noted with a complex left-sided hydrocele containing air, debris and peripheral enhancement. Atherosclerosis of the abdominal aorta. No lymphadenopathy identified. Small hiatal hernia. There is no bowel obstruction or bowel wall thickening. Mild fecal retention. No CT evidence of acute appendicitis. Trace free fluid within the inferior right pericolic gutter. Dege nerative changes of the spine, pelvis and hips. L4 vertebral body hemangioma. IMPRESSION: 1. Left scrotal surgical drainage catheter is in place with a large left complex hydrocele containing air and peripheral enhancement. Findings may represent a pyocele and is better characterized on the scrotal ultrasound of same day. 2. Prostamegaly with findings suggestive of chronic bladder outlet obstruction. Correlate with urinal ysis to exclude cystitis. 3. No renal or ureteral calculi or hydronephrosis. 4. Trace pleural effusions with mild linear bibasilar consolidation suggestive of atelectasis. 5. Cholelithiasis. 6. Indeterminate 10 mm exophytic lesion of the superior pole right kidney. This could be correlated w ith a nonemergent renal ultrasound. 7. Additional findings as above. ACT 112: Negative or not required by law. The above report was generated using voice recognition software. It may contain grammatical, syntax o r spelling errors. Electronically signed by: Lester Hernandez M.D. 11/16/2021 8:34 AM
[2021-11-16] MEDS: amLODIPine BESYLATE 5 MG TAB PO SCH (08:45)
[2021-11-16] MEDS: DOXYCYCLINE HYCLATE 100 MG CAP PO SCH (08:45)
[2021-11-16] MEDS: lisinopril 10 MG TAB PO SCH (08:45)
[2021-11-16 08:51] LABS: Hematocrit (blood only) 33.3 % (42-52); Mean Corpuscular Volume 93.8 fL (80-100); Mean Platelet Volume 11.3 fL (7.4-10.4); Platelet Count 237 K/uL (130-400); RDW Coefficient of Variation 13.7 % (11.5-14.5); RDW Standard Deviation 47.2 fL (36.4-46.3); Red Blood Count 3.55 M/uL (4.7-6.1); White Blood Count 12.16 K/uL (4.8-10.8)
[2021-11-16 09:17] LABS: Calcium 8.2 mg/dl (8.5-10.1); Creatinine Clr Calc Pharmacy 51.6 ml/min; Est GFR (African American) 75.7 ml/min; Est GFR (Non-African American) 65.3 ml/min; Potassium 4.3 mmol/L (3.5-5.1)
[2021-11-16] MEDS ORDERED: carvediloL 25 MG TAB PO SCH (16:30)
--- NOTE | 2021-11-16 17:22 | Discharge Summary ---
Date of Service November 16, 2021 Admission HPI Per Admitting Provider Patient here for procedure. Had hydrocelectomy with Dr. Fernandez. Developed swelling after restarting ASA. Likely large hematoma. N/V with pain meds. No other changes in medical issues. No major changes in urinary issues. Continued issues and concerns. No change in pain or discomfort. No severe fevers or chills. No chest pain or shortness of breath. Risks and benefits discussed at length for procedure. These include bleeding, infection, injury to surrounding tissues or organs, and risks associated with anesthesia. Patient and/or family states understanding and agrees to proceed. Consent and supporting information completed. Admission Exam Per Admitting Provider General: Alert/Arousable. No Acute illness. . HEENT: Inspection normal. Normal inspection of face. Normal inspection of neck. Psychologic: Normal affect/No change in mentation. Respiratory: No use of accessory muscles. No respiratory changes or exacerbation or changes with tachypnea or dyspnea. Cardiovascular: No tachycardia Skin: [place] and Dry. No new rashes or visible lesions. Abdomen: Normal inspection. No guarding. : Large Likely hematoma of scrotum Principal Diagnosis Testicular pain; Complex Seroma/Hematoma Discharge Exam Constitutional no acute distress Respiratory no respiratory distress and no labored breathing Cardiovascular Extremities: no calf tenderness Gastrointestinal (Abdomen) Inspection/Auscultation: abdomen normal to inspection Neurologic moves all extremities and awake Psychiatric Orientation: alert, oriented x 3 and cooperative Genitourinary Scrotal support in place, small amount of serous drainage noted. Swoope drain in place. Minimally tender to palpation Discharge Data Allergies Allergy/AdvReac Type Severity Reaction Status Date / Time naproxen [From Aleve] Allergy Intermediate VISION Verified 11/06/21 11:44 ISSUES adhesive tape Allergy Mild RASH Verified 11/06/21 11:44 amoxicillin Allergy Mild DIZZINESS, Verified 11/06/21 11:44 NAUSEA levofloxacin Allergy Mild DIZZINESS, Verified 11/06/21 11:44 NAUSEA acetaminophen [From Percocet] AdvReac Severe Dizziness Unverified 11/15/21 12:32 oxycodone [From Percocet] AdvReac Severe Dizziness Unverified 11/15/21 12:32 amiodarone AdvReac Intermediate Ocular Verified 11/06/21 11:44 toxicity Consultations 11/15/21 19:10 Consult Hospitalist Routine Procedures Performed Operation Date: 11/15/21 16:00 Actual Procedures p Scrotal Exploration, Left Incision and Drainage of Complex Hematoma(Bilateral) - Law Sultana, DO Ordered Studies 11/15/21 12:17 US scrotum/testicle Stat 11/15/21 19:14 CT abd pelvis wo con Urgent Hospital Course (1) Scrotal hematoma: (2) Status post urological surgery: 81yo M who is s/p hydrocele and TURP last month and presented with worsening swelling/pain to left testicle and had scrotal ultrasound x 2 consistent with hematoma/fluid collection. Pt underwent Scrotal Exploration with Left Incision and Drainage of Complex Seroma/Hematoma with Dr. Sultana. He was admitted postoperatively due to pain and n/v. Hospital medicine consulted. - Pt stable overnight. - Reported an improvement of pain and n/v. - Labs appropriate. - Voiding without issue. - Ambulated without issue. - Tolerated diet. - Surgical incisions appropriate. Lesley drain intact. - Discussed with hospital team, pt was ok for discharge POD #1. - Pt discharged home in stable condition. - Pt to continue antibiotics (Doxycyline) on discharge. - Will arrange outpatient follow-up with our service for continued care and drain removal. Total Time Total Time Spent Total Time Spent (In Minutes): 15 Discharge Plan Discharge Items Patient Disposition: Home - Self-Care Reason For Visit: TESTICULAR PAIN,SWELLING,S/P SURG Discharge Diagnosis: Same. Activity: Per Instructions section Lifting: No more than 25 pounds Bathing Comment: Okay to shower tomorrow. Exercise/Sports: Gradually increase as tolerated Non-emergency contact: Surgeon and Urologist Call non-emergency contact if: you have any medication questions, your symptoms worsen, your pain is not controlled, your pain is worsening, your pain is unusual for you, your pain is concerning for you, you have a fever, your temperature is above 101.5, your wound has increased redness, your wound has increased drainage and your wound pain has increased Follow-up/Referrals: Kenny Fernandez MD [Physician] - (DR SULTANA' OFFICE WILL CALL YOU TO ARRANGE A DISCHARGE FOLLOW-UP APPOINTMENT.) Luz Maria Parisi MD [Primary Care Provider] - Diet: Regular Ambulatory Orders: Basic Metabolic Panel (Routine) Timeframe: 3 Days Location: Determined by Patient Ordered By: Digna Cramer Attending Provider Instructions: Please take all medications as prescribed and keep all follow-ups as scheduled. Please call the urology office at [phone] with any questions, concerns or need to reschedule appointments for any reason. We are happy to assist you. What to expect after your surgery: You will have a drain. Change bandages as needed. Your testicle/scrotum may swell. It may bleed a little around the incision. The scrotum may become red or [id number]. You may experience pain in testicle, abdomen, or discomfort. Take pain medicine if you feel you need it. Healing takes about 2-3 weeks, and your stitches will dissolve on their own, unless you have been informed otherwise. When to call [facility] at [phone] (or report to the ED if it is after hours): Fever of 101F or higher Discharge that is heavy, a greenish color, or lasts more than a week Bleeding that isnt controlled by applying gentle pressure Issues with drain Okay to shower in 24 hours. Okay to wash with warm soapy water. Okay to shower. Recommend scrotal support when ambulating, Scrotal elevation when sitting/laying flat, Ice (20 mins on/20 mins off) when acutely swollen or tender, Heating Pad (20 mins on/20 mins off) when sore, and avoidance of injury/protection when active. The urology office will call you to arrange drain removal in approx 5-7 days. Please continue the antibiotic - Doxycycline twice daily until complete. Recommend that you follow-up with your primary care provider in the next week. [employer] Provider Instructions: You should hold your lisinopril for tonight and monitor your BPs. You can resume this medication in the morning. You have been provided an rx for repeat BMP in next 3 days to ensure kidney function remains stable on the Bactrim and Doxycycline used to treat infection. Pending Studies at Discharge: No Stand-Alone Forms: Anesthesia/Sedation, Adult, [facility] [employer]out Medications and DC Order Prescriptions: New tamsulosin 0.4 mg capsule 0.4 mg PO HS Qty: 30 RF: 0 phenazopyridine [Pyridium] 200 mg tablet 200 mg PO Q8H PRN (Reason: pain) Qty: 10 RF: 0 Continued carvedilol 12.5 mg tablet 12.5 mg PO .COMPLEX Qty: 225 RF: 3 doxycycline hyclate 100 mg tablet 100 mg PO BID 10 Days Qty: 20 RF: 0 cholecalciferol (vitamin D3) 25 mcg (1,000 unit) capsule 1,000 units PO QAM RF: 0 coQ10 (ubiquinol) 100 mg capsule 100 mg PO TID RF: 0 amlodipine 5 mg tablet 5 mg PO BID RF: 0 lisinopril 10 mg tablet 10 mg PO BID RF: 0 fluticasone propionate [Allergy Relief (fluticasone)] 50 mcg/actuation spray,suspension 1 spray intranasal PRN RF: 0 multivitamin Tablet 1 tab PO QAM RF: 0 No Action ondansetron HCl 4 mg tablet 4 mg PO Q8H PRN (Reason: nausea and vomiting) Qty: 7 RF: 0 tramadol 50 mg tablet 50 mg PO Q8H PRN (Reason: pain) Qty: 7 RF: 0 Discharge Orders: Discharge Order (Routine); Ordered 11/16/21 Ordered By: Digna Mack/Other Patient Handouts: DVT Post Op Prevention Admission Data Admit Date/Time: 11/15/21 19:10 Attending Provider: Law Sultana Admit Provider: Law Sultana Primary Care Provider: Luz Maria Parisi Other Providers: Jonathan Rushing ; Digna Pagan ; Sukhi Griffiths ; Aditya Sawant ; Tico Chow ; Luis Fernando Hector ; Emily Liu ; Elder Irby ; Starla Ignacio ; Chavez Gonzalez ; Carmelo Juarez ; Victorina Phillips ; Amanda Moss ; Armand Johnson ; Digna Rey ; Kobe Avalos ; Katerina Renteria ; Hollis Hunt ; Charlie Guillen ; Minoo Hoffman ; Loretta Munoz ; Marcellus Graham ; Jennifer Posey ; Alcides Huang ; John Galicia ; Vikki Maguire ; Owen Camejo ; Tino Chapman Other Interventions: Discharge Summary Assessment (RN) Last Done: 11/16/21 12:38 Coding Level of Care Code D/C DAY MANAGEMENT <30 MINS Diagnoses Scrotal hematoma S30.22XA Status post urological surgery Z98.890
== END 2021-11-16 14:17 | disposition home or self-care (01) ==
LOC: ED 11:37 → 2W 15:32 → OR 15:32
DX: N50.89 Other specified disorders of the male genital organs; M79.81 Nontraumatic hematoma of soft tissue; I10 Essential (primary) hypertension; N40.1 Benign prostatic hyperplasia with lower urinary tract symptoms; R11.0 Nausea; Z95.5 Presence of coronary angioplasty implant and graft; I42.9 Cardiomyopathy, unspecified; Z88.0 Allergy status to penicillin; Z79.899 Other long term (current) drug therapy; Z88.1 Allergy status to other antibiotic agents; Z88.6 Allergy status to analgesic agent; Z91.048 Other nonmedicinal substance allergy status; N50.812 Left testicular pain